=== PATIENT | female | born 1985 | race Caucasian/White ===

== ENCOUNTER 2017-08-27 19:28 | Inpatient (IN) | payer OTHER ==
[2017-08-27] MEDS ORDERED: Sodium Chloride 0.9% 1,000 ML IV ONE ×2 (20:36→21:31)
--- NOTE | 2017-08-27 20:36 | C.PDOC ---
History Of Present Illness Patient presents to the ER with a complaint of intermittent abdominal pain and right flank pain for the past week that has worsened today, associated with nausea. Patient reports she believes she had a UTI 2 weeks ago for which she took AZO. Patient notes the pain worsens with walking and eating but has been taking tylenol with some relief. Denies chest pain, SOB, or vomiting. Time Seen by Provider: 08/27/17 20:33 Chief Complaint (Nursing): Abdominal Pain History Per: Patient History/Exam Limitations: no limitations Onset/Duration Of Symptoms: Days, Intermittent Episodes Current Symptoms Are (Timing): Still Present Severity: Moderate Pain Scale Rating Of: 6 Location Of Pain/Discomfort: RUQ, Other (Right flank) Quality Of Discomfort: Unable To Describe Associated Symptoms: Nausea. denies: Vomiting Exacerbating Factors: None Alleviating Factors: None Recent travel outside of the [place]: No Additional History Per: Family Abnormal Vaginal Bleeding: No Past Medical History Reviewed: Historical Data, Nursing Documentation, Vital Signs Vital Signs: Last Vital Signs Temp 103.1 F H 08/27/17 21:31 Pulse 114 H 08/27/17 21:26 Resp 18 08/27/17 21:26 BP 161/110 H 08/27/17 21:26 Pulse Ox 100 08/27/17 21:26 Family History: States: No Known Family Hx - Social History Hx Tobacco Use: No Hx Alcohol Use: No Hx Substance Use: No - Immunization History Hx Tetanus Toxoid Vaccination: No Hx Influenza Vaccination: No Hx Pneumococcal Vaccination: No Review Of Systems Constitutional: Negative for: Fever, Chills Cardiovascular: Negative for: Chest Pain, Palpitations Respiratory: Negative for: Cough, Shortness of Breath Gastrointestinal: Positive for: Nausea, Abdominal Pain. Negative for: Vomiting Genitourinary: Positive for: Dysuria, Frequency Musculoskeletal: Positive for: Other (Right flank pain) Skin: Negative for: Rash Neurological: Negative for: Weakness Psych: Negative for: Anxiety Physical Exam - Physical Exam Appears: Non-toxic Skin: Warm, Dry Head: Normacephalic Oral Mucosa: Moist Neck: Supple Chest: Symmetrical, No Tenderness Cardiovascular: Rhythm Regular Respiratory: No Rales, No Rhonchi, No Wheezing Gastrointestinal/Abdominal: Soft, Tenderness (RUQ), No Guarding, No Rebound Back: CVA Tenderness (Right) Extremity: Normal ROM Extremity: Bilateral: Atraumatic Neurological/Psych: Oriented x3, Normal Speech Gait: Steady ED Course And Treatment - Laboratory Results Result Diagrams: 08/27/17 20:50 08/27/17 20:50 O2 Sat by Pulse Oximetry: 100 (Room air) Pulse Ox Interpretation: Normal Progress Note: Blood work and urinalysis ordered. Morphine, IV fluids, and zofran administered. Disposition Discussed With Dr.: Nicholas Norman Comment: accepted the pt on h is service and took over the care at 9:46 PM Doctor Will See Patient In The: ED Counseled Patient/Family Regarding: Studies Performed, Diagnosis - Disposition Disposition: HOSPITALIZED Disposition Time: 20:36 Condition: FAIR Forms: [facility] (Czech) - POA Present On Arrival: None - Clinical Impression Clinical Impression: Abdominal pain, Acute pyelonephritis - Scribe Statement The provider has reviewed the documentation as recorded by the Scribe Eric Stephens All medical record entries made by the Scribe were at my direction and personally dictated by me. I have reviewed the chart and agree that the record accurately reflects my personal performance of the history, physical exam, medical decision making, and the department course for this patient. I have also personally directed, reviewed, and agree with the discharge instructions and disposition. Decision To Admit - Pt Status Changed To: Hospital Disposition Of: Inpatient - Admit Certification Admit to Inpatient:: After my assessment, the patient will require hospitalization for at least two midnights. This is because of the severity of symptoms shown, intensity of services needed, and/or the medical risk in this patient being treated as an outpatient. - InPatient: Physician Admission Certification:: After my assessment, the patient will require hospitalization for at least two midnights. This is because of the severity of symptoms shown, intensity of services needed, and/or the medical risk in this patient being treated as an outpatient. - . Bed Request Type: Regular Admitting Physician: Nicholas Norman Patient Diagnosis: Abdominal pain, Acute pyelonephritis
[2017-08-27 20:53] LABS: BASO % 0.3 % (0.0-2.0); EOS % 0.2 % (0.0-4.0); HEMOGLOBIN 13.3 g/dL (11.0-16.0); LYMPH # 0.5 K/uL (1.0-4.3); LYMPH % 5.9 % (20.0-40.0); MEAN CELL VOLUME 82.6 fL (81.0-99.0); MEAN CORPUSCULAR HEMOGLOBIN 27.5 pg (27.0-31.0); MEAN CORPUSCULAR HGB CONC 33.3 g/dL (33.0-37.0); MEAN PLATELET VOLUME 9.3 fL (7.2-11.7); MONO # 0.6 K/uL (0.0-0.8); MONO % 6.1 % (0.0-10.0); NEUT # 7.9 K/uL (1.8-7.0); NEUT % 87.5 % (50.0-75.0); NRBC % 0.1 % (0.0-2.0); PLATELET COUNT 211 K/uL (130-400); RBC 4.86 Mil/uL (3.80-5.20); RED CELL DISTRIBUTION WIDTH 12.6 % (11.5-14.5)
[2017-08-27 20:56] LABS: HCG,QUALITATIVE URINE NEGATIVE (NEGATIVE)
[2017-08-27 20:59] LABS: SQUAMOUS EPITHIAL 1 /hpf (0-5); URINE BACTERIA RARE (<OCC); URINE BILIRUBIN NEGATIVE (NEGATIVE); URINE BLOOD 2+ (NEGATIVE); URINE CLARITY Hazy (Clear); URINE COLOR Yellow (YELLOW); URINE GLUCOSE (UA) NORMAL (Normal); URINE LEUKOCYTE ESTERASE 3+ Leu/uL (Negative); URINE PROTEIN 2+ mg/dL (NEGATIVE); URINE UROBILINOGEN NORMAL mg/dL (0.2-1.0)
[2017-08-27 21:05] LABS: VENOUS BLOOD GAS BASE EXCESS -1.1 mmol/L (0.0-2.0); VENOUS BLOOD GAS PCO2 45 mmHg (40-60); VENOUS BLOOD GAS PO2 14 mm/Hg (30-55); VENOUS BLOOD PH 7.35 (7.32-7.43)
[2017-08-27 21:05] LABS: ALB/GLOB RATIO 1.3 (1.0-2.1); ALBUMIN 4.2 g/dL (3.5-5.0); ALT/SGPT 23 U/L (9-52); AST/SGOT 27 U/L (14-36); BLOOD UREA NITROGEN 13 mg/dL (7-17); CALCIUM 9.1 mg/dl (8.6-10.4); GFR AFRICAN-AMERICAN > 60; GFR NON-AFRICAN AMERICAN > 60; LIPASE 36 U/L (23-300)
[2017-08-27 21:16] LABS: BANDS 6 % (0-2); LYMPHOCYTE 9 % (20-40); MONOCYTE 8 % (0-10); NEUTROPHIL 77 % (50-75); PLATELET ESTIMATE NORMAL (NORMAL); TOTAL CELLS COUNTED 100
[2017-08-27] MEDS ORDERED: Sodium Chloride 0.9% 1,000 ML ONE (21:35)
--- NOTE | 2017-08-27 22:00 | CP.PCM.HP ---
<Aleta Meraz - Last Filed: 08/27/17 23:41> History of Present Illness - History of Present Illness History of Present Illness: CC: back pain and dysuria HPI: 31F patient states that the right sided flank/back pain started on Friday 08/25 and she noted cloudy urine and increased frequency Patient states for the past two days she's been having pain without burning with urination and suprapubic pain. Patient admits to RLQ and Right mid quadrant pain associated with nausea. Pain is noted as stabbing with pressure worse with walking, worse with food. Patient states she took tylenol which helped. Patient admits to fever, chills, nausea, abdominal pain, dysuria. Patient states she wipes from front to back and urinates immediately after sexual intercourse. PMH:LMP 1 month, irregular periords Social History: no illicit drugs, never smoker Family history: mother has HTN, DM PMD: Dr. Smith Present on Admission - Present on Admission Any Indicators Present on Admission: No History of DVT/PE: No History of Uncontrolled Diabetes: No Urinary Catheter: No Decubitus Ulcer Present: No Review of Systems - Review of Systems All systems: reviewed and no additional remarkable complaints except - Constitutional Constitutional: Fever. absent: Headache, Lethargy, Malaise - Cardiovascular Cardiovascular: absent: Palpitations Past Patient History - Infectious Disease Hx of Infectious Diseases: None - Past Social History Smoking Status: Never Smoked - PSYCHIATRIC Hx Substance Use: No - SURGICAL HISTORY Hx Surgeries: Yes Hx Section: Yes (x3) - ANESTHESIA Hx Anesthesia: Yes Hx Anesthesia Reactions: No Meds Allergies/Adverse Reactions: Allergies Allergy/AdvReac Type Severity Reaction Status Date / Time No Known Allergies Allergy Verified 08/27/17 20:02 Physical Exam - Constitutional Appears: Non-toxic, No Acute Distress - Head Exam Head Exam: ATRAUMATIC, NORMAL INSPECTION, NORMOCEPHALIC - Eye Exam Eye Exam: EOMI, Normal appearance Pupil Exam: NORMAL ACCOMODATION, PERRL - ENT Exam ENT Exam: Mucous Membranes Moist, Normal Exam - Neck Exam Neck exam: Positive for: Normal Inspection. Negative for: Tenderness, Thyromegaly - Respiratory Exam Respiratory Exam: Clear to Auscultation Bilateral, NORMAL BREATHING PATTERN. absent: Accessory Muscle Use, Respiratory Distress - Cardiovascular Exam Cardiovascular Exam: Tachycardia, REGULAR RHYTHM, +S1, +S2 - GI/Abdominal Exam GI & Abdominal Exam: Normal Bowel Sounds, Soft, Tenderness (right lower quadrant , suprapubic) - Extremities Exam Extremities exam: Positive for: full ROM, normal inspection. Negative for: pedal edema - Back Exam Back exam: CVA tenderness (R), FULL ROM, NORMAL INSPECTION - Neurological Exam Neurological exam: Alert, Normal Gait - Psychiatric Exam Psychiatric exam: Normal Affect, Normal Mood - Skin Skin Exam: Warm Results - Vital Signs Recent Vital Signs: Last Vital Signs Temp 103.1 F H 08/27/17 21:31 Pulse 114 H 08/27/17 21:26 Resp 18 08/27/17 21:26 BP 161/110 H 08/27/17 21:26 Pulse Ox 100 08/27/17 21:48 - Labs Result Diagrams: 08/27/17 20:50 08/27/17 20:50 Labs: Laboratory Results - last 24 hr 08/27/17 08/27/17 08/27/17 20:50 20:50 20:50 WBC 9.0 RBC 4.86 Hgb 13.3 Hct 40.1 MCV 82.6 MCH 27.5 MCHC 33.3 RDW 12.6 Plt Count 211 MPV 9.3 Neut % (Auto) 87.5 H Lymph % (Auto) 5.9 L [place] % (Auto) 6.1 Eos % (Auto) 0.2 Baso % (Auto) 0.3 Neut # (Auto) 7.9 H Lymph # (Auto) 0.5 L [place] # (Auto) 0.6 Eos # (Auto) 0.0 Baso # (Auto) 0.0 Neutrophils % (Manual) 77 H Band Neutrophils % 6 H Lymphocytes % (Manual) 9 L Monocytes % (Manual) 8 Platelet Estimate Normal pO2 VBG pH VBG pCO2 VBG HCO3 VBG Total CO2 VBG O2 Sat (Calc) VBG Base Excess VBG Potassium Glucose Lactate FiO2 Sodium 141 Potassium 4.1 Chloride 102 Carbon Dioxide 26 Anion Gap 17 BUN 13 Creatinine 0.8 Est GFR ( Amer) > 60 Est GFR (Non-Af Amer) > 60 Random Glucose 93 Calcium 9.1 Total Bilirubin 0.9 AST 27 ALT 23 Alkaline Phosphatase 61 Total Protein 7.5 Albumin 4.2 Globulin 3.3 Albumin/Globulin Ratio 1.3 Lipase 36 Venous Blood Potassium Urine Color Yellow Urine Clarity Hazy Urine pH 7.0 Ur Specific Chase 1.016 Urine Protein 2+ H Urine Glucose (UA) Normal Urine Ketones Negative Urine Blood 2+ H Urine Nitrate Negative Urine Bilirubin Negative Urine Urobilinogen Normal Ur Leukocyte Esterase 3+ H Urine WBC (Auto) 510 H Urine RBC (Auto) 127 H Ur Squamous Epith Cells 1 Urine Bacteria Rare Urine HCG, Qual Negative 08/27/17 20:55 WBC RBC Hgb Hct MCV MCH MCHC RDW Plt Count MPV Neut % (Auto) Lymph % (Auto) [place] % (Auto) Eos % (Auto) Baso % (Auto) Neut # (Auto) Lymph # (Auto) [place] # (Auto) Eos # (Auto) Baso # (Auto) Neutrophils % (Manual) Band Neutrophils % Lymphocytes % (Manual) Monocytes % (Manual) Platelet Estimate pO2 14 L VBG pH 7.35 VBG pCO2 45 VBG HCO3 21.8 VBG Total CO2 26.2 VBG O2 Sat (Calc) 19.8 L VBG Base Excess -1.1 L VBG Potassium 3.1 L Glucose 80 Lactate 0.8 FiO2 21.0 Sodium 140.0 Potassium Chloride 109.0 H Carbon Dioxide Anion Gap BUN Creatinine Est GFR ( Amer) Est GFR (Non-Af Amer) Random Glucose Calcium Total Bilirubin AST ALT Alkaline Phosphatase Total Protein Albumin Globulin Albumin/Globulin Ratio Lipase Venous Blood Potassium 3.1 L Urine Color Urine Clarity Urine pH Ur Specific Chase Urine Protein Urine Glucose (UA) Urine Ketones Urine Blood Urine Nitrate Urine Bilirubin Urine Urobilinogen Ur Leukocyte Esterase Urine WBC (Auto) Urine RBC (Auto) Ur Squamous Epith Cells Urine Bacteria Urine HCG, Qual Assessment & Plan - Assessment and Plan (Free Text) Assessment: Pyelonephritis (right>Left) UTI UA positive f/u CT abdomen/pelvis: perinephric stranding noted f/u Urine culture f/u blood culture Monitor vitals tylenol 650mg PO Q6H PRN fever toradol 15mg IVP Q6H PRN pain, moderate toradol 30mg IVP Q6H PRN pain, severe LR @150cc/hr Rocephin 1 gm/D5W Q24H pyridium TID x 6 doses Prophylaxis SCDs Aleta Meraz DO PGY1 - Date & Time Date: 08/27/17 Time: 23:44 <Nicholas Norman P - Last Filed: 08/28/17 06:56> Results - Vital Signs Recent Vital Signs: Last Vital Signs Temp 99.1 F 08/28/17 06:00 Pulse 100 H 08/28/17 00:05 Resp 20 08/28/17 00:05 BP 126/82 08/28/17 00:05 Pulse Ox 98 08/28/17 00:05 - Labs Result Diagrams: 08/27/17 20:50 08/27/17 20:50 Labs: Laboratory Results - last 24 hr 08/27/17 08/27/17 08/27/17 20:50 20:50 20:50 WBC 9.0 RBC 4.86 Hgb 13.3 Hct 40.1 MCV 82.6 MCH 27.5 MCHC 33.3 RDW 12.6 Plt Count 211 MPV 9.3 Neut % (Auto) 87.5 H Lymph % (Auto) 5.9 L [place] % (Auto) 6.1 Eos % (Auto) 0.2 Baso % (Auto) 0.3 Neut # (Auto) 7.9 H Lymph # (Auto) 0.5 L [place] # (Auto) 0.6 Eos # (Auto) 0.0 Baso # (Auto) 0.0 Neutrophils % (Manual) 77 H Band Neutrophils % 6 H Lymphocytes % (Manual) 9 L Monocytes % (Manual) 8 Platelet Estimate Normal pO2 VBG pH VBG pCO2 VBG HCO3 VBG Total CO2 VBG O2 Sat (Calc) VBG Base Excess VBG Potassium Glucose Lactate FiO2 Sodium 141 Potassium 4.1 Chloride 102 Carbon Dioxide 26 Anion Gap 17 BUN 13 Creatinine 0.8 Est GFR ( Amer) > 60 Est GFR (Non-Af Amer) > 60 Random Glucose 93 Calcium 9.1 Total Bilirubin 0.9 AST 27 ALT 23 Alkaline Phosphatase 61 Total Protein 7.5 Albumin 4.2 Globulin 3.3 Albumin/Globulin Ratio 1.3 Lipase 36 Venous Blood Potassium Urine Color Yellow Urine Clarity Hazy Urine pH 7.0 Ur Specific [place] 1.016 Urine Protein 2+ H Urine Glucose (UA) Normal Urine Ketones Negative Urine Blood 2+ H Urine Nitrate Negative Urine Bilirubin Negative Urine Urobilinogen Normal Ur Leukocyte Esterase 3+ H Urine WBC (Auto) 510 H Urine RBC (Auto) 127 H Ur Squamous Epith Cells 1 Urine Bacteria Rare Urine HCG, Qual Negative 08/27/17 20:55 WBC RBC Hgb Hct MCV MCH MCHC RDW Plt Count MPV Neut % (Auto) Lymph % (Auto) [place] % (Auto) Eos % (Auto) Baso % (Auto) Neut # (Auto) Lymph # (Auto) [place] # (Auto) Eos # (Auto) Baso # (Auto) Neutrophils % (Manual) Band Neutrophils % Lymphocytes % (Manual) Monocytes % (Manual) Platelet Estimate pO2 14 L VBG pH 7.35 VBG pCO2 45 VBG HCO3 21.8 VBG Total CO2 26.2 VBG O2 Sat (Calc) 19.8 L VBG Base Excess -1.1 L VBG Potassium 3.1 L Glucose 80 Lactate 0.8 FiO2 21.0 Sodium 140.0 Potassium Chloride 109.0 H Carbon Dioxide Anion Gap BUN Creatinine Est GFR ( Amer) Est GFR (Non-Af Amer) Random Glucose Calcium Total Bilirubin AST ALT Alkaline Phosphatase Total Protein Albumin Globulin Albumin/Globulin Ratio Lipase Venous Blood Potassium 3.1 L Urine Color Urine Clarity Urine pH Ur Specific [place] Urine Protein Urine Glucose (UA) Urine Ketones Urine Blood Urine Nitrate Urine Bilirubin Urine Urobilinogen Ur Leukocyte Esterase Urine WBC (Auto) Urine RBC (Auto) Ur Squamous Epith Cells Urine Bacteria Urine HCG, Qual Attending/Attestation - Attestation I have personally seen and examined this patient.: Yes I have fully participated in the care of the patient.: Yes I have reviewed all pertinent clinical information: Yes Notes (Text): 08/28/17 06:54 Clinically and radiologically right pyelonephritis, started on rocephin 1g iv daily, pain control with toradol 15mg iv q6, awaiting urine and blood cultures, see orders for detail.
[2017-08-28] MEDS: Lactated Ringer's 1,000 ML IV SCH ×5 (00:45→20:24)
--- NOTE | 2017-08-28 09:17 | CT ---
PROCEDURE: CT Abdomen and Pelvis without intravenous contrast HISTORY: Right flank pain COMPARISON: None. TECHNIQUE: Multiple contiguous axial images were performed through the abdomen and pelvis without intravenous contrast. Subsequently, sagittal and coronal reformatted images were obtained. Radiation dose: Total exam DLP = 372 mGy-cm. This CT exam was performed using one or more of the following dose reduction techniques: Automated exposure control, adjustment of the mA and/or kV according to patient size, and/or use of iterative reconstruction technique. FINDINGS: LOWER THORAX: Small hiatal hernia. Mild atelectasis at the lung bases. LIVER: Unremarkable. No gross lesion or ductal dilatation. GALLBLADDER AND BILE DUCTS: Unremarkable. PANCREAS: Unremarkable. No gross lesion or ductal dilatation. SPLEEN: Unremarkable. ADRENALS: Unremarkable. No mass. KIDNEYS AND URETERS: Bilateral perinephric stranding and edema; right greater than left. No gross renal calculi identified. VASCULATURE: Unremarkable. No aortic aneurysm. BOWEL: Stomach is partially distended. Proximal small bowel is mildly dilated. Scattered air-fluid levels. Streak artifact limits evaluation of the mid small bowel. Distal small bowel is decompressed. Ileocecal region is unremarkable. Colon is incompletely distended which limits evaluation. APPENDIX: Unremarkable. Normal appendix. PERITONEUM: Unremarkable. No free fluid. No free air. LYMPH NODES: Shotty adenopathy. BLADDER: Under distended urinary bladder. Mild prominence of the urinary bladder wall. REPRODUCTIVE: Prominence of the left adnexum with a 3.8 centimeter left adnexal cyst. BONES: No acute fracture. OTHER FINDINGS: None. IMPRESSION: Bilateral perinephric stranding and edema; right greater than left. No gross calculi or stones. Limited evaluation of the renal parenchyma secondary to lack of intravenous contrast. Pyelonephritis cannot be excluded. Clinical correlation. Mild urinary bladder wall thickening versus underdistention. Clinical correlation. 3.8 centimeter left adnexal cyst. Correlation with pelvic ultrasound may be helpful. Additional findings as above. These findings were preliminarily reported at 10:33 p.m. on 08/27/[address] Tabatha Sahni from [facility] [employer].
[2017-08-28] MEDS ORDERED: cefTRIAXone IV 1 gm in Dextros 50 ML IVPB SCH (10:00)
--- NOTE | 2017-08-28 13:42 | CP.PCM.PN ---
<John David - Last Filed: 08/28/17 13:44> Subjective - Date & Time of Evaluation Date of Evaluation: 08/28/17 Time of Evaluation: 13:39 - Subjective Subjective: Patient seen and examined at bedside. Doing well. Denies any dysuria. Still complaining of mild flank pain but no suprapubic tenderness. Tolerating diet. Ambulating without difficulty. Objective - Vital Signs/Intake and Output Vital Signs (last 24 hours): Temp Pulse Resp BP Pulse Ox 99.2 F 113 H 20 143/90 98 08/28/17 12:45 08/28/17 07:57 08/28/17 07:57 08/28/17 07:57 08/28/17 07:57 Intake and Output: 08/28/17 08/28/17 06:59 18:59 Intake Total 390 Balance 390 - Medications Medications: Current Medications Acetaminophen (Tylenol 325mg Tab) 650 mg PO Q6 PRN PRN Reason: Fever >100.4 F Last Admin: 08/28/17 12:41 Dose: 650 mg Ceftriaxone Sodium (Rocephin Iv 1 Gm Duplex) 50 mls @ 100 mls/hr IVPB DAILY [facility] PRN Reason: Protocol Last Admin: 08/28/17 10:01 Dose: 100 mls/hr Lactated Ringer's (Lactated Ringer's) 1,000 mls @ 150 mls/hr IV .Q6H40M [facility] Last Admin: 08/28/17 07:25 Dose: 150 mls/hr Ketorolac Tromethamine (Toradol) 15 mg IVP Q6 PRN PRN Reason: Pain, moderate (4-7) Last Admin: 08/28/17 07:30 Dose: 15 mg Pneumococcal Polyvalent Vaccine (Pneumovax 23 Vaccine) 0.5 ml IM .ONCE ONE Stop: 08/29/17 10:01 - Labs Labs: 08/27/17 20:50 08/27/17 20:50 - Constitutional Appears: Well - Head Exam Head Exam: ATRAUMATIC, NORMAL INSPECTION, NORMOCEPHALIC - Eye Exam Eye Exam: EOMI, Normal appearance, PERRL Pupil Exam: NORMAL ACCOMODATION, PERRL - ENT Exam ENT Exam: Mucous Membranes Moist, Normal Exam - Neck Exam Neck Exam: Full ROM, Normal Inspection. absent: Lymphadenopathy - Respiratory Exam Respiratory Exam: Clear to Ausculation Bilateral, NORMAL BREATHING PATTERN - Cardiovascular Exam Cardiovascular Exam: REGULAR RHYTHM, +S1, +S2. absent: Murmur - GI/Abdominal Exam GI & Abdominal Exam: Soft, Normal Bowel Sounds. absent: Distended, Tenderness - Extremities Exam Extremities Exam: Full ROM, Normal Capillary Refill, Normal Inspection. absent : Joint Swelling, Pedal Edema - Back Exam Back Exam: NORMAL INSPECTION - Neurological Exam Neurological Exam: Alert, Awake, CN II-XII Intact, Normal Gait, Oriented x3 - Psychiatric Exam Psychiatric exam: Normal Affect, Normal Mood - Skin Skin Exam: Dry, Intact, Normal Color, Warm Assessment and Plan (1) Acute pyelonephritis Assessment & Plan: Patient complains of R. Flank pain but no other urinary complaints. CT abdomen pelvis w/o contrast shows b/l perinephric stranding R>L w/no stones. UA 3+ LE. UC pending. Patient was previously on Rocephin but continue to spike High fevers. Will d/c rocephin and start Imipenim for ESBL coverage if that returner to be the case. Will tailor Abx once UC is final. At this time will continue with pain control and hydration. Status: Acute <Markie Hightower H - Last Filed: 08/28/17 14:58> Objective - Vital Signs/Intake and Output Vital Signs (last 24 hours): Temp Pulse Resp BP Pulse Ox 103 F H 113 H 20 143/90 98 08/28/17 13:50 08/28/17 07:57 08/28/17 07:57 08/28/17 07:57 08/28/17 07:57 Intake and Output: 08/28/17 08/28/17 06:59 18:59 Intake Total 390 Balance 390 - Medications Medications: Current Medications Acetaminophen (Tylenol 325mg Tab) 650 mg PO Q6 PRN PRN Reason: Fever >100.4 F Last Admin: 08/28/17 12:41 Dose: 650 mg Lactated Ringer's (Lactated Ringer's) 1,000 mls @ 150 mls/hr IV .Q6H40M [facility] Last Admin: 08/28/17 14:21 Dose: Not Given Imipenem/Cilastatin Sodium 500 (mg/ Sodium Chloride) 100 mls @ 100 mls/hr IVPB Q6H [facility] PRN Reason: Protocol Last Admin: 08/28/17 14:34 Dose: 100 mls/hr Ibuprofen (Motrin Tab) 400 mg PO Q6H PRN PRN Reason: Fever >100.4 F Last Admin: 08/28/17 14:19 Dose: 400 mg Ketorolac Tromethamine (Toradol) 15 mg IVP Q6 PRN PRN Reason: Pain, moderate (4-7) Last Admin: 08/28/17 07:30 Dose: 15 mg Ondansetron HCl (Zofran Inj) 4 mg IVP Q6H PRN PRN Reason: Nausea/Vomiting Last Admin: 08/28/17 14:20 Dose: 4 mg Pneumococcal Polyvalent Vaccine (Pneumovax 23 Vaccine) 0.5 ml IM .ONCE ONE Stop: 08/29/17 10:01 - Labs Labs: 08/27/17 20:50 08/27/17 20:50 Attending/Attestation - Attestation I have personally seen and examined this patient.: Yes I have fully participated in the care of the patient.: Yes I have reviewed all pertinent clinical information, including history, physical exam and plan: Yes Notes (Text): 08/28/17 14:57 Medical attending: Patient was seen and examined by me. Agree with the above note by the resident. The patient reported she had less pain than yesterday - however she reported still having fevers. There was a temp of 102 and later on I was informed a temperature of 103. We are still pending the cultures at this moment - but considering the temperatures will change lead to IV primaxin. Markie Hightower
[2017-08-29] MEDS: Lactated Ringer's 1,000 ML IV SCH ×5 (01:10→23:45)
[2017-08-29] MEDS ORDERED: Pneumococcal 23-Valent Vaccine IM ONE (10:00)
--- NOTE | 2017-08-29 13:19 | CP.PCM.PN ---
<John David - Last Filed: 08/29/17 13:15> Subjective - Date & Time of Evaluation Date of Evaluation: 08/29/17 Time of Evaluation: 13:15 - Subjective Subjective: Patient seen and examined at bedside. Doing well. Pain is improving but patient still having fevers. Tolerating diet. Ambulating without difficulty. No chills. No nausea. Patient states she had one episode of diarrhea that appeared to have blood in it. Objective - Vital Signs/Intake and Output Vital Signs (last 24 hours): Temp Pulse Resp BP Pulse Ox 98.7 F 91 H 20 121/80 100 08/29/17 07:47 08/29/17 07:47 08/29/17 07:47 08/29/17 07:47 08/29/17 07:47 Intake and Output: 08/29/17 08/29/17 06:59 18:59 Intake Total 3070 Balance 3070 - Medications Medications: Current Medications Acetaminophen (Tylenol 325mg Tab) 650 mg PO Q6 PRN PRN Reason: Fever >100.4 F Last Admin: 08/28/17 23:44 Dose: 650 mg Lactated Ringer's (Lactated Ringer's) 1,000 mls @ 150 mls/hr IV .Q6H40M CHARLIE Last Admin: 08/29/17 09:45 Dose: 150 mls/hr Imipenem/Cilastatin Sodium 500 (mg/ Sodium Chloride) 100 mls @ 100 mls/hr IVPB Q6H CHARLIE PRN Reason: Protocol Last Admin: 08/29/17 08:15 Dose: 100 mls/hr Ibuprofen (Motrin Tab) 400 mg PO Q6H PRN PRN Reason: Fever >100.4 F Last Admin: 08/28/17 14:19 Dose: 400 mg Ketorolac Tromethamine (Toradol) 15 mg IVP Q6 PRN PRN Reason: Pain, moderate (4-7) Last Admin: 08/29/17 05:53 Dose: 15 mg Ondansetron HCl (Zofran Inj) 4 mg IVP Q6H PRN PRN Reason: Nausea/Vomiting Last Admin: 08/28/17 14:20 Dose: 4 mg - Labs Labs: 08/27/17 20:50 08/27/17 20:50 - Constitutional Appears: Well - Head Exam Head Exam: ATRAUMATIC, NORMAL INSPECTION, NORMOCEPHALIC - Eye Exam Eye Exam: EOMI, Normal appearance, PERRL Pupil Exam: NORMAL ACCOMODATION, PERRL - ENT Exam ENT Exam: Mucous Membranes Moist, Normal Exam - Neck Exam Neck Exam: Full ROM, Normal Inspection. absent: Lymphadenopathy - Respiratory Exam Respiratory Exam: Clear to Ausculation Bilateral, NORMAL BREATHING PATTERN - Cardiovascular Exam Cardiovascular Exam: REGULAR RHYTHM, +S1, +S2. absent: Murmur - GI/Abdominal Exam GI & Abdominal Exam: Soft, Tenderness (mild tnederness to palaption of the right flank), Normal Bowel Sounds - Rectal Exam Rectal Exam: NORMAL INSPECTION - Exam Exam: Circumcision, NORMAL INSPECTION External exam: NORMAL EXTERNAL EXAM Speculum exam: NORMAL SPECULUM EXAM Bimanual exam: NORMAL BIMANUAL EXAM - Extremities Exam Extremities Exam: Full ROM, Normal Capillary Refill, Normal Inspection. absent : Joint Swelling, Pedal Edema - Back Exam Back Exam: CVA tenderness (R) (improving), NORMAL INSPECTION - Neurological Exam Neurological Exam: Alert, Awake, CN II-XII Intact, Normal Gait, Oriented x3 - Psychiatric Exam Psychiatric exam: Normal Affect, Normal Mood - Skin Skin Exam: Dry, Intact, Normal Color, Warm Assessment and Plan (1) Acute pyelonephritis Assessment & Plan: Patient complains of R. Flank pain but no other urinary complaints. CT abdomen pelvis w/o contrast shows b/l perinephric stranding R>L w/no stones. UA 3+ LE. UC pending. Patient on Imipenim for ESBL coverage if that returns processor to be the case. Will tailor Abx once UC is final, @ this time shows gram negative rods. Blood cultures negative to date. Pain is improving however the patient continues to have fever . At this time will continue with pain control and hydration. She did have one episode of diarrhea that appeared to have blood in it. Will check labs and stool studies. Status: Acute <Markie Hightower H - Last Filed: 08/29/17 14:31> Objective - Vital Signs/Intake and Output Vital Signs (last 24 hours): Temp Pulse Resp BP Pulse Ox 101.6 F H 91 H 20 121/80 100 08/29/17 13:20 08/29/17 07:47 08/29/17 07:47 08/29/17 07:47 08/29/17 07:47 Intake and Output: 08/29/17 08/29/17 06:59 18:59 Intake Total 3070 Balance 3070 - Medications Medications: Current Medications Acetaminophen (Tylenol 325mg Tab) 650 mg PO Q6 PRN PRN Reason: Fever >100.4 F Last Admin: 08/29/17 13:20 Dose: 650 mg Lactated Ringer's (Lactated Ringer's) 1,000 mls @ 150 mls/hr IV .Q6H40M CHARLIE Last Admin: 08/29/17 09:45 Dose: 150 mls/hr Imipenem/Cilastatin Sodium 500 (mg/ Sodium Chloride) 100 mls @ 100 mls/hr IVPB Q6H CHARLIE PRN Reason: Protocol Last Admin: 08/29/17 14:27 Dose: 100 mls/hr Ibuprofen (Motrin Tab) 400 mg PO Q6H PRN PRN Reason: Fever >100.4 F Last Admin: 08/28/17 14:19 Dose: 400 mg Ketorolac Tromethamine (Toradol) 15 mg IVP Q6 PRN PRN Reason: Pain, moderate (4-7) Last Admin: 08/29/17 14:25 Dose: 15 mg Ondansetron HCl (Zofran Inj) 4 mg IVP Q6H PRN PRN Reason: Nausea/Vomiting Last Admin: 08/28/17 14:20 Dose: 4 mg - Labs Labs: 08/29/17 10:46 08/29/17 13:57 Attending/Attestation - Attestation I have personally seen and examined this patient.: Yes I have fully participated in the care of the patient.: Yes I have reviewed all pertinent clinical information, including history, physical exam and plan: Yes Notes (Text): 08/29/17 14:28 Medical attending: Patient was seen and examined by me, agrees the above note by the medical scientist. The patient was not in any acute distress when I saw her she is still having some fevers noted every now and then. She says that the pain particularly on her right flank is substantially less than before. She is currently on IV Primaxin at this moment. The urine culture is a preliminary gram-negative shireen at this moment. We'll await the finalization of this and if need to make any further adjustments to the antibiotics Thank you very much, Markie Hightower
[2017-08-29 14:10] LABS: BASO % 0.1 % (0.0-2.0); EOS # 0.2 K/uL (0.0-0.7); EOS % 2.1 % (0.0-4.0); HEMOGLOBIN 11.6 g/dL (11.0-16.0); LYMPH # 0.8 K/uL (1.0-4.3); MEAN CELL VOLUME 82.6 fL (81.0-99.0); MEAN CORPUSCULAR HEMOGLOBIN 27.5 pg (27.0-31.0); MEAN CORPUSCULAR HGB CONC 33.3 g/dL (33.0-37.0); MEAN PLATELET VOLUME 9.6 fL (7.2-11.7); MONO # 0.8 K/uL (0.0-0.8); MONO % 10.6 % (0.0-10.0); NEUT # 5.9 K/uL (1.8-7.0); NEUT % 76.2 % (50.0-75.0); RBC 4.21 Mil/uL (3.80-5.20); RED CELL DISTRIBUTION WIDTH 12.5 % (11.5-14.5); WHITE BLOOD COUNT 7.7 K/uL (4.8-10.8)
[2017-08-29 14:26] LABS: ALB/GLOB RATIO 1.1 (1.0-2.1); ALBUMIN 3.3 g/dL (3.5-5.0); ALT/SGPT 32 U/L (9-52); AST/SGOT 23 U/L (14-36); BLOOD UREA NITROGEN 6 mg/dL (7-17); CALCIUM 8.7 mg/dl (8.6-10.4); GFR AFRICAN-AMERICAN > 60; GFR NON-AFRICAN AMERICAN > 60
[2017-08-30] MEDS ORDERED: DiphenhydrAMINE 50 mg/ml Inj IVP STA (00:08)
[2017-08-30] MEDS: Lactated Ringer's 1,000 ML IV SCH (05:55)
--- NOTE | 2017-08-30 07:49 | CP.PCM.PN ---
<Zane Ventura - Last Filed: 08/30/17 08:13> Subjective - Date & Time of Evaluation Date of Evaluation: 08/30/17 Time of Evaluation: 07:47 - Subjective Subjective: PGY-[address] Hightower's service: Pt seen and examined at bedside. Nursing reports no acute events overnight. Objective - Vital Signs/Intake and Output Vital Signs (last 24 hours): Temp Pulse Resp BP Pulse Ox 99.3 F 89 20 136/88 98 08/30/17 01:00 08/30/17 00:00 08/30/17 00:00 08/30/17 01:00 08/30/17 00:00 Intake and Output: 08/30/17 08/30/17 06:59 18:59 Intake Total 1600 1700 Output Total 600 Balance 1000 1700 - Medications Medications: Current Medications Acetaminophen (Tylenol 325mg Tab) 650 mg PO Q6 PRN PRN Reason: Fever >100.4 F Last Admin: 08/30/17 00:16 Dose: 650 mg Lactated Ringer's (Lactated Ringer's) 1,000 mls @ 150 mls/hr IV .Q6H40M CHARLIE Last Admin: 08/30/17 05:55 Dose: 150 mls/hr Imipenem/Cilastatin Sodium 500 (mg/ Sodium Chloride) 100 mls @ 100 mls/hr IVPB Q6H CHARLIE PRN Reason: Protocol Last Admin: 08/30/17 01:29 Dose: 100 mls/hr Ibuprofen (Motrin Tab) 400 mg PO Q6H PRN PRN Reason: Fever >100.4 F Last Admin: 08/28/17 14:19 Dose: 400 mg Ondansetron HCl (Zofran Inj) 4 mg IVP Q6H PRN PRN Reason: Nausea/Vomiting Last Admin: 08/28/17 14:20 Dose: 4 mg - Labs Labs: 08/29/17 10:46 08/29/17 13:57 - Additional Findings Additional findings: - Constitutional Appears: Well - Head Exam Head Exam: ATRAUMATIC, NORMAL INSPECTION, NORMOCEPHALIC - Eye Exam Eye Exam: EOMI, Normal appearance, PERRL Pupil Exam: NORMAL ACCOMODATION, PERRL - ENT Exam ENT Exam: Mucous Membranes Moist, Normal Exam - Neck Exam Neck Exam: Full ROM, Normal Inspection. absent: Lymphadenopathy - Respiratory Exam Respiratory Exam: Clear to Ausculation Bilateral, NORMAL BREATHING PATTERN - Cardiovascular Exam Cardiovascular Exam: REGULAR RHYTHM, +S1, +S2. absent: Murmur - GI/Abdominal Exam GI & Abdominal Exam: Soft, Tenderness (mild tnederness to palaption of the right flank), Normal Bowel Sounds - Rectal Exam Rectal Exam: NORMAL INSPECTION - Extremities Exam Extremities Exam: Full ROM, Normal Capillary Refill, Normal Inspection. absent : Joint Swelling, Pedal Edema - Back Exam Back Exam: CVA tenderness (R) (improving), NORMAL INSPECTION - Neurological Exam Neurological Exam: Alert, Awake, CN II-XII Intact, Normal Gait, Oriented x3 - Psychiatric Exam Psychiatric exam: Normal Affect, Normal Mood - Skin Skin Exam: Dry, Intact, Normal Color, Warm Assessment and Plan - Assessment and Plan (Free Text) Plan: Acute pyelonephritis Admit to med/surg Febrile overnight; WBC WNL - Minor left shift CT abdomen pelvis w/o contrast (08/28/17) shows b/l perinephric stranding R>L w/ no stones UA 3+ LE UC (08/28/17): E Coli Imipenim for ESBL coverage Blood cultures negative to date x 2 ESBL Positive Urine culture Imipenem for ESBL coverage GI Bleed Positive Fecal Occult Monitor H/H Hypophosphotemia Phos 2.3 Will monitor and replete if needed Abnormal UA UA (08/27/17): 3+ LE, 510 WBC, 127 RBC, 2+ blood Prophylaxis <KatjaPeter H - Last Filed: 08/30/17 09:56> Objective - Vital Signs/Intake and Output Vital Signs (last 24 hours): Temp Pulse Resp BP Pulse Ox 98.2 F 74 20 138/95 H 98 08/30/17 07:00 08/30/17 07:00 08/30/17 07:00 08/30/17 07:00 08/30/17 07:00 Intake and Output: 08/30/17 08/30/17 06:59 18:59 Intake Total 1600 1700 Output Total 600 Balance 1000 1700 - Medications Medications: Current Medications Acetaminophen (Tylenol 325mg Tab) 650 mg PO Q6 PRN PRN Reason: Fever >100.4 F Last Admin: 08/30/17 00:16 Dose: 650 mg Imipenem/Cilastatin Sodium 500 (mg/ Sodium Chloride) 100 mls @ 100 mls/hr IVPB Q6H CHARLIE PRN Reason: Protocol Last Admin: 08/30/17 08:03 Dose: 100 mls/hr Ibuprofen (Motrin Tab) 400 mg PO Q6H PRN PRN Reason: Fever >100.4 F Last Admin: 08/28/17 14:19 Dose: 400 mg Ondansetron HCl (Zofran Inj) 4 mg IVP Q6H PRN PRN Reason: Nausea/Vomiting Last Admin: 08/28/17 14:20 Dose: 4 mg - Labs Labs: 08/29/17 10:46 08/29/17 13:57 Attending/Attestation - Attestation I have personally seen and examined this patient.: Yes I have fully participated in the care of the patient.: Yes I have reviewed all pertinent clinical information, including history, physical exam and plan: Yes Notes (Text): 08/30/17 09:50 Medical attending: Patient was seen and examined by me. Agree with the above note by the resident The patient needs contact isolation. She has ESBL E coli. It is senstive to primaxin - and it does not have any sentivity to oral abx, she does feel better. However because of the abcterial resistance we will try to give her 7 days total. Tommorow will recheck the blood and urine cultures. Currently the WBC is stable. She reports the flank and abdominal pain is very minimal. thank you Markie Hightower
--- NOTE | 2017-08-31 07:42 | CP.PCM.PN ---
<Zane Ventura - Last Filed: 08/31/17 10:22> Subjective - Date & Time of Evaluation Date of Evaluation: 08/31/17 Time of Evaluation: 07:37 - Subjective Subjective: PGY-[address] Hightower's service: Pt seen and examined at bedside. Nursing reports pt afebrile overnight. Patient denies any pain in her flank this AM. She denies subjective fever, chills, dysuria, abd pain, N/V. Patient aware of need for full course of IV antibiotics due to resistance to PO meds. Objective - Vital Signs/Intake and Output Vital Signs (last 24 hours): Temp Pulse Resp BP Pulse Ox 98.1 F 84 18 150/99 H 99 08/30/17 23:58 08/30/17 23:58 08/30/17 23:58 08/30/17 23:58 08/30/17 23:58 Intake and Output: 08/31/17 08/31/17 06:59 18:59 Intake Total 940 Balance 940 - Medications Medications: Current Medications Acetaminophen (Tylenol 325mg Tab) 650 mg PO Q6 PRN PRN Reason: Fever >100.4 F Last Admin: 08/30/17 14:18 Dose: 650 mg Imipenem/Cilastatin Sodium 500 (mg/ Sodium Chloride) 100 mls @ 100 mls/hr IVPB Q6H CHARLIE PRN Reason: Protocol Last Admin: 08/31/17 01:55 Dose: 100 mls/hr Ibuprofen (Motrin Tab) 400 mg PO Q6H PRN PRN Reason: Fever >100.4 F Last Admin: 08/30/17 17:35 Dose: 400 mg Ondansetron HCl (Zofran Inj) 4 mg IVP Q6H PRN PRN Reason: Nausea/Vomiting Last Admin: 08/28/17 14:20 Dose: 4 mg - Labs Labs: 08/29/17 10:46 08/29/17 13:57 - Additional Findings Additional findings: - Constitutional Appears: Well - Head Exam Head Exam: ATRAUMATIC, NORMAL INSPECTION, NORMOCEPHALIC - Eye Exam Eye Exam: EOMI, Normal appearance, PERRL Pupil Exam: NORMAL ACCOMODATION, PERRL - ENT Exam ENT Exam: Mucous Membranes Moist, Normal Exam - Neck Exam Neck Exam: Full ROM, Normal Inspection. absent: Lymphadenopathy - Respiratory Exam Respiratory Exam: Clear to Ausculation Bilateral, NORMAL BREATHING PATTERN - Cardiovascular Exam Cardiovascular Exam: REGULAR RHYTHM, +S1, +S2. absent: Murmur - GI/Abdominal Exam GI & Abdominal Exam: Soft, Normal Bowel Sounds - Rectal Exam Rectal Exam: NORMAL INSPECTION - Extremities Exam Extremities Exam: Full ROM, Normal Capillary Refill, Normal Inspection. absent : Joint Swelling, Pedal Edema - Back Exam Back Exam: Abdias sign negative bilaterally, NORMAL INSPECTION - Neurological Exam Neurological Exam: Alert, Awake, CN II-XII Intact, Normal Gait, Oriented x3 - Psychiatric Exam Psychiatric exam: Normal Affect, Normal Mood - Skin Skin Exam: Dry, Intact, Normal Color, Warm Assessment and Plan - Assessment and Plan (Free Text) Plan: Acute pyelonephritis Admit to med/surg Afebrile overnight; WBC CT abdomen pelvis w/o contrast (08/28/17) shows b/l perinephric stranding R>L w/ no stones UA 3+ LE Urine Culture (08/28/17): ESBL Imipenim 500mg Q6H IV for ESBL coverage Tylenol 650mg PO Q6H PRN fever Zofran 4mg IV Q6H PRN Blood cultures negative x 3 days f/u repeat urine/blood cultures ESBL Positive Urine culture Imipenem for ESBL coverage Hematuria UA (08/27/17): 3+ LE, 510 WBC, 127 RBC, 2+ blood Etiology of hematuria: pyelo Lower GI bleed Positive Fecal Occult Stable H/H Monitor Elevated AST AST 40 (08/31) Monitor Hypophosphotemia Resolved Prophylaxis SCDs GI not indicated VTE HOLD due to positive fecal occult Disposition: F/u repeat blood, urine cultures. Needs total of one week IV ABX. Zane Ventura PGY [address] Hightower <Markie Hightower H - Last Filed: 08/31/17 12:11> Objective - Vital Signs/Intake and Output Vital Signs (last 24 hours): Temp Pulse Resp BP Pulse Ox 98.1 F 79 20 131/89 100 08/31/17 08:00 08/31/17 08:00 08/31/17 08:00 08/31/17 08:00 08/31/17 08:00 Intake and Output: 08/31/17 08/31/17 06:59 18:59 Intake Total 940 Balance 940 - Medications Medications: Current Medications Acetaminophen (Tylenol 325mg Tab) 650 mg PO Q6 PRN PRN Reason: Fever >100.4 F Last Admin: 08/30/17 14:18 Dose: 650 mg Imipenem/Cilastatin Sodium 500 (mg/ Sodium Chloride) 100 mls @ 100 mls/hr IVPB Q6H CHARLIE PRN Reason: Protocol Last Admin: 08/31/17 08:08 Dose: 100 mls/hr Ondansetron HCl (Zofran Inj) 4 mg IVP Q6H PRN PRN Reason: Nausea/Vomiting Last Admin: 08/28/17 14:20 Dose: 4 mg - Labs Labs: 08/31/17 08:30 08/31/17 08:30 Attending/Attestation - Attestation Notes (Text): 08/31/17 12:09 Medical attending: Patient was seen and examined by me. Patient reported resloution of pain in the right flank as well as pain in the right upper quadrant. The patient as previously mentioned has + ESBL E coli and so is in isolation is needed. She remains on the IV primaxin. Pending the repeat cultures Markie Hightower
[2017-08-31 08:50] LABS: BASO % 0.2 % (0.0-2.0); EOS # 0.2 K/uL (0.0-0.7); EOS % 4.8 % (0.0-4.0); HEMOGLOBIN 11.9 g/dL (11.0-16.0); LYMPH # 1.1 K/uL (1.0-4.3); LYMPH % 23.1 % (20.0-40.0); MEAN CELL VOLUME 81.9 fL (81.0-99.0); MEAN CORPUSCULAR HEMOGLOBIN 27.9 pg (27.0-31.0); MEAN CORPUSCULAR HGB CONC 34.1 g/dL (33.0-37.0); MEAN PLATELET VOLUME 9.1 fL (7.2-11.7); MONO # 0.5 K/uL (0.0-0.8); NEUT # 2.8 K/uL (1.8-7.0); NEUT % 60.9 % (50.0-75.0); NRBC % 0.1 % (0.0-2.0); RBC 4.26 Mil/uL (3.80-5.20); RED CELL DISTRIBUTION WIDTH 12.6 % (11.5-14.5); WHITE BLOOD COUNT 4.6 K/uL (4.8-10.8)
[2017-08-31 09:04] LABS: ALB/GLOB RATIO 1.1 (1.0-2.1); ALBUMIN 3.5 g/dL (3.5-5.0); ALT/SGPT 42 U/L (9-52); AST/SGOT 40 U/L (14-36); BLOOD UREA NITROGEN 8 mg/dL (7-17); CALCIUM 8.6 mg/dl (8.6-10.4); GFR AFRICAN-AMERICAN > 60; GFR NON-AFRICAN AMERICAN > 60
[2017-09-01 07:24] LABS: BASO % 0.4 % (0.0-2.0); EOS # 0.2 K/uL (0.0-0.7); EOS % 4.2 % (0.0-4.0); HEMOGLOBIN 12.7 g/dL (11.0-16.0); LYMPH # 1.7 K/uL (1.0-4.3); LYMPH % 31.8 % (20.0-40.0); MEAN CELL VOLUME 81.7 fL (81.0-99.0); MEAN CORPUSCULAR HEMOGLOBIN 27.5 pg (27.0-31.0); MEAN CORPUSCULAR HGB CONC 33.7 g/dL (33.0-37.0); MEAN PLATELET VOLUME 8.9 fL (7.2-11.7); MONO # 0.6 K/uL (0.0-0.8); MONO % 11.3 % (0.0-10.0); NEUT # 2.9 K/uL (1.8-7.0); NEUT % 52.3 % (50.0-75.0); RBC 4.62 Mil/uL (3.80-5.20); RED CELL DISTRIBUTION WIDTH 12.5 % (11.5-14.5); WHITE BLOOD COUNT 5.5 K/uL (4.8-10.8)
[2017-09-01 07:56] LABS: ALB/GLOB RATIO 1.2 (1.0-2.1); ALBUMIN 3.8 g/dL (3.5-5.0); ALT/SGPT 84 U/L (9-52); AST/SGOT 76 U/L (14-36); BLOOD UREA NITROGEN 11 mg/dL (7-17); CALCIUM 9.1 mg/dl (8.6-10.4); GFR AFRICAN-AMERICAN > 60; GFR NON-AFRICAN AMERICAN > 60
[2017-09-01 08:10] VITALS: RESP 20
--- NOTE | 2017-09-01 09:56 | CP.PCM.PN ---
Subjective - Date & Time of Evaluation Date of Evaluation: 09/01/17 Time of Evaluation: 09:53 - Subjective Subjective: PGY-[address] Gaitan. No acute events noted overnight. Patient stated she felt well - much improved since this past friday. She said she's able to urinate without symptoms, and that she has no pubic or flank pain. She denies fevers. She slept well and is eating well. Objective - Vital Signs/Intake and Output Vital Signs (last 24 hours): Temp Pulse Resp BP Pulse Ox 98 F 73 20 131/89 99 09/01/17 08:06 09/01/17 08:06 09/01/17 08:06 09/01/17 08:06 09/01/17 08:06 Intake and Output: 09/01/17 09/01/17 06:59 18:59 Intake Total 1300 Output Total 2 Balance 1298 - Medications Medications: Current Medications Acetaminophen (Tylenol 325mg Tab) 650 mg PO Q6 PRN PRN Reason: Fever >100.4 F Last Admin: 08/30/17 14:18 Dose: 650 mg Imipenem/Cilastatin Sodium 500 (mg/ Sodium Chloride) 100 mls @ 100 mls/hr IVPB Q6H CHARLIE PRN Reason: Protocol Last Admin: 09/01/17 07:45 Dose: 100 mls/hr Ondansetron HCl (Zofran Inj) 4 mg IVP Q6H PRN PRN Reason: Nausea/Vomiting Last Admin: 08/28/17 14:20 Dose: 4 mg - Labs Labs: 09/01/17 07:05 09/01/17 07:05 - Additional Findings Additional findings: - Constitutional Appears: Well - Head Exam Head Exam: ATRAUMATIC, NORMAL INSPECTION, NORMOCEPHALIC - Eye Exam Eye Exam: EOMI, Normal appearance, PERRL Pupil Exam: NORMAL ACCOMODATION, PERRL - ENT Exam ENT Exam: Mucous Membranes Moist, Normal Exam - Neck Exam Neck Exam: Full ROM, Normal Inspection. absent: Lymphadenopathy - Respiratory Exam Respiratory Exam: Clear to Ausculation Bilateral, NORMAL BREATHING PATTERN - Cardiovascular Exam Cardiovascular Exam: REGULAR RHYTHM, +S1, +S2. absent: Murmur - GI/Abdominal Exam GI & Abdominal Exam: Soft, Normal Bowel Sounds - Rectal Exam Rectal Exam: NORMAL INSPECTION - Extremities Exam Extremities Exam: Full ROM, Normal Capillary Refill, Normal Inspection. absent : Joint Swelling, Pedal Edema - Back Exam Back Exam: NORMAL INSPECTION, No CVA tenderness elicited on palpation - Neurological Exam Neurological Exam: Alert, Awake, CN II-XII Intact, Normal Gait, Oriented x3 - Psychiatric Exam Psychiatric exam: Normal Affect, Normal Mood - Skin Skin Exam: Dry, Intact, Normal Color, Warm Assessment and Plan - Assessment and Plan (Free Text) Assessment: Acute pyelonephritis ID consult, Dr Abraham Admit to med/surg Afebrile overnight; WBC normal CT abdomen pelvis w/o contrast (08/28/17) shows b/l perinephric stranding R>L w/ no stones UA 3+ LE Blood cultures 08/28 negative x 4 days Repeat urine 08/31 and blood cultures 08/31 NEGATIVE Medications: Urine Culture (08/28/17): ESBL Imipenim/Cilastin 500mg Q6H IV for ESBL coverage (started 08/28/17) * Needs total of one week IV ABX Tylenol 650mg PO Q6H PRN fever Zofran 4mg IV Q6H PRN ESBL Positive Urine culture Imipenem for ESBL coverage Hematuria UA (08/27/17): 3+ LE, 510 WBC, 127 RBC, 2+ blood Etiology of hematuria: pyelo Lower GI bleed Positive Fecal Occult Stable H/H Monitor Elevated AST/ALT AST 76, ALT 84 Monitor Hypophosphotemia Resolved Prophylaxis SCDs GI not indicated VTE HOLD due to positive fecal occult Disposition: Needs total of one week IV ABX. Jerrod Romero PGY [address] Gaitan
--- NOTE | 2017-09-01 16:26 | CP.PCM.CON ---
History of Present Illness - History of Present Illness History of Present Illness: dictated Past Patient History - Infectious Disease Hx of Infectious Diseases: None - Past Medical History & Family History Past Medical History?: Yes - Past Social History Smoking Status: Never Smoked - CARDIAC Hx Cardiac Disorders: No - PULMONARY Hx Respiratory Disorders: No - NEUROLOGICAL Hx Neurological Disorder: No - HEENT Hx HEENT Problems: No - RENAL Hx Chronic Kidney Disease: No - ENDOCRINE/METABOLIC Hx Endocrine Disorders: No - HEMATOLOGICAL/ONCOLOGICAL Hx Blood Disorders: No - INTEGUMENTARY Hx Dermatological Problems: No - MUSCULOSKELETAL/RHEUMATOLOGICAL Hx Musculoskeletal Disorders: No Hx Falls: No - GASTROINTESTINAL Hx Gastrointestinal Disorders: No - GENITOURINARY/GYNECOLOGICAL Hx Genitourinary Disorders: No - PSYCHIATRIC Hx Psychophysiologic Disorder: No Hx Substance Use: No - SURGICAL HISTORY Hx Surgeries: Yes Hx Section: Yes (x3) - ANESTHESIA Hx Anesthesia: Yes Hx Anesthesia Reactions: No Meds Allergies/Adverse Reactions: Allergies Allergy/AdvReac Type Severity Reaction Status Date / Time No Known Allergies Allergy Verified 08/27/17 20:02 - Medications Medications: Current Medications Acetaminophen (Tylenol 325mg Tab) 650 mg PO Q6 PRN PRN Reason: Fever >100.4 F Last Admin: 08/30/17 14:18 Dose: 650 mg Imipenem/Cilastatin Sodium 500 (mg/ Sodium Chloride) 100 mls @ 100 mls/hr IVPB Q6H CHARLIE PRN Reason: Protocol Last Admin: 09/01/17 14:08 Dose: 100 mls/hr Ondansetron HCl (Zofran Inj) 4 mg IVP Q6H PRN PRN Reason: Nausea/Vomiting Last Admin: 08/28/17 14:20 Dose: 4 mg Results - Vital Signs Recent Vital Signs: Last Vital Signs Temp 98.2 F 09/01/17 16:16 Pulse 77 09/01/17 16:16 Resp 20 09/01/17 16:16 BP 137/92 H 09/01/17 16:16 Pulse Ox 98 09/01/17 16:16 - Labs Result Diagrams: 09/01/17 07:05 09/01/17 07:05 Labs: Laboratory Results - last 24 hr 09/01/17 09/01/17 07:05 07:05 WBC 5.5 RBC 4.62 Hgb 12.7 Hct 37.7 MCV 81.7 MCH 27.5 MCHC 33.7 RDW 12.5 Plt Count 272 MPV 8.9 Neut % (Auto) 52.3 Lymph % (Auto) 31.8 [place] % (Auto) 11.3 H Eos % (Auto) 4.2 H Baso % (Auto) 0.4 Neut # (Auto) 2.9 Lymph # (Auto) 1.7 [place] # (Auto) 0.6 Eos # (Auto) 0.2 Baso # (Auto) 0.0 Sodium 140 Potassium 4.1 Chloride 102 Carbon Dioxide 28 Anion Gap 14 BUN 11 Creatinine 0.7 Est GFR ( Amer) > 60 Est GFR (Non-Af Amer) > 60 Random Glucose 97 Calcium 9.1 Phosphorus 3.8 Magnesium 1.8 Total Bilirubin 0.4 AST 76 H D ALT 84 H D Alkaline Phosphatase 86 Total Protein 7.0 Albumin 3.8 Globulin 3.2 Albumin/Globulin Ratio 1.2
[2017-09-02 07:37] LABS: BASO % 0.5 % (0.0-2.0); EOS # 0.3 K/uL (0.0-0.7); EOS % 4.3 % (0.0-4.0); HEMOGLOBIN 13.2 g/dL (11.0-16.0); LYMPH # 1.8 K/uL (1.0-4.3); LYMPH % 30.2 % (20.0-40.0); MEAN CELL VOLUME 81.2 fL (81.0-99.0); MEAN CORPUSCULAR HEMOGLOBIN 27.7 pg (27.0-31.0); MEAN CORPUSCULAR HGB CONC 34.1 g/dL (33.0-37.0); MEAN PLATELET VOLUME 8.6 fL (7.2-11.7); MONO # 0.6 K/uL (0.0-0.8); MONO % 9.4 % (0.0-10.0); NEUT # 3.4 K/uL (1.8-7.0); NEUT % 55.6 % (50.0-75.0); NRBC % 0.1 % (0.0-2.0); RBC 4.75 Mil/uL (3.80-5.20); RED CELL DISTRIBUTION WIDTH 12.5 % (11.5-14.5)
[2017-09-02 07:50] LABS: ALB/GLOB RATIO 1.1 (1.0-2.1); ALBUMIN 3.7 g/dL (3.5-5.0); ALT/SGPT 90 U/L (9-52); AST/SGOT 63 U/L (14-36); BLOOD UREA NITROGEN 14 mg/dL (7-17); GFR AFRICAN-AMERICAN > 60; GFR NON-AFRICAN AMERICAN > 60
--- NOTE | 2017-09-02 09:22 | CON ---
DATE: 09/01/2017 INFECTIOUS DISEASE CONSULT REFERRED BY: Nicholas Norman MD HISTORY OF PRESENT ILLNESS: This patient is a 31-year-old female. She states 2 weeks ago, she had urine infection and she went and got some [id number] she has had that but she does not know what it contained, and she continued to have problems and came here with back pain, dysuria, and frequency on 08/27/2017. She started to have this pain on 08/25/2017, and she noted cloudy urine and increased frequency, and she came with pain without burning, with urination, and suprapubic pain. She is feeling little better now. She was started on Primaxin. I am asked to evaluate her because Primaxin is only given after approval of ID and pharmacy must have requested that. She denies any fever, chills, nausea, vomiting at this time, but she says she was very sick when she came in and had back pain, dysuria and frequency. The patient is feeling little better now. Denies any dysuria, denies back pain. PAST MEDICAL HISTORY: Significant for irregular periods. SOCIAL HISTORY: Negative for smoking or drinking or any drug abuse. PAST SURGERIES: No previous surgeries. FAMILY HISTORY: She has a family history of mother having hypertension and diabetes but she denies having diabetes herself. REVIEW OF SYSTEMS: She has no fever, no headaches now. No ear, nose, throat problems. No chest pain. No shortness of breath. No abdominal pain. No nausea, no vomiting. Denies urgency now and frequency and is feeling slightly better. ALLERGIES: SHE IS NOT ALLERGIC TO ANY MEDICINE. MEDICATIONS: She does not take any medicine regularly. Here, she is started on Tylenol, she is on imipenem, and she was on Zofran. PHYSICAL EXAMINATION: VITAL SIGNS: I find, her temperature is 98.2, pulse 77, blood pressure is 137/92. Her T-max is being afebrile. HEENT: Head is atraumatic, normocephalic. Pupils are reacting to light. NECK: Supple. JVP is flat. LUNGS: Clear. No crackles or rales present. HEART: S1, S2 is regular. No murmurs appreciated. ABDOMEN: Soft, nontender. No guarding, no rigidity present. BACK: No CVA tenderness present. She did say she was having lower back pain when she came on both sides. EXTREMITIES: Have no edema. LABORATORY DATA: Labs are noted. Labs show white count is 5.5, hemoglobin 12.7, hematocrit 37.7, platelet count is 272. Her chemistry shows sodium is 140, potassium 4.1, chloride of 102, CO2 is 28, BUN is 11, creatinine 0.7. AST is elevated to 76, ALT is 84, albumin is 3.3. Potassium is 4.18, it was low before. She also had blood cultures which are negative. Urine culture now is negative, she had on the , this is ESBL positive, and she is on Primaxin __multidrug___ resistant strain. She also had a CT abdomen and pelvis done which showed under distended urinary bladder, mild prominence of the bladder wall, and bilateral perinephric stranding and edema, right greater than left. No breast calculi or stones, limited evaluation of the renal parenchyma secondary to lack of intravenous contrast, pyelonephritis cannot be excluded. _IMP and plan : THIS patient has clinically uti with E coli esbl positive with pyelonephritis, I would give meropenem for next 10 days to cover for ESBL and to continue antibiotics, and we will discuss the plan with the resident, once she starts to improve clinically, but will need antibiotics for at least minimum of 10 days, and she needs to continue with contact precaution because she has ESBL in the urine and make sure she is not diabetic, and we will follow. Eden Abraham MD NETTE
--- NOTE | 2017-09-02 14:56 | CP.PCM.PN ---
Subjective - Date & Time of Evaluation Date of Evaluation: 09/02/17 Time of Evaluation: 02:25 - Subjective Subjective: dictated Objective - Vital Signs/Intake and Output Vital Signs (last 24 hours): Temp Pulse Resp BP Pulse Ox 98 F 75 20 122/86 98 09/02/17 08:00 09/02/17 08:00 09/02/17 08:00 09/02/17 08:00 09/02/17 08:00 Intake and Output: 09/02/17 09/02/17 06:59 18:59 Intake Total 600 Balance 600 - Medications Medications: Current Medications Acetaminophen (Tylenol 325mg Tab) 650 mg PO Q6 PRN PRN Reason: Fever >100.4 F Last Admin: 08/30/17 14:18 Dose: 650 mg Ondansetron HCl (Zofran Inj) 4 mg IVP Q6H PRN PRN Reason: Nausea/Vomiting Last Admin: 08/28/17 14:20 Dose: 4 mg - Labs Labs: 09/02/17 07:18 09/02/17 07:18
--- NOTE | 2017-09-02 17:29 | CP.PCM.PN ---
Subjective - Date & Time of Evaluation Date of Evaluation: 09/02/17 Time of Evaluation: 08:00 - Subjective Subjective: PGY-[address] Gaitan. No acute events noted overnight. Patient stated she had no symptoms. Denies dysuria, pelvic pain, flank pain, hematuria. She was agreeable to the plan of daily IV abx at an infusion center. Objective - Vital Signs/Intake and Output Vital Signs (last 24 hours): Temp Pulse Resp BP Pulse Ox 98.2 F 80 20 136/91 H 98 09/02/17 15:56 09/02/17 15:56 09/02/17 15:56 09/02/17 15:56 09/02/17 15:56 Intake and Output: 09/02/17 09/02/17 06:59 18:59 Intake Total 600 Balance 600 - Medications Medications: Current Medications Acetaminophen (Tylenol 325mg Tab) 650 mg PO Q6 PRN PRN Reason: Fever >100.4 F Last Admin: 09/02/17 15:35 Dose: 650 mg Ondansetron HCl (Zofran Inj) 4 mg IVP Q6H PRN PRN Reason: Nausea/Vomiting Last Admin: 08/28/17 14:20 Dose: 4 mg - Labs Labs: 09/02/17 07:18 09/02/17 07:18 - Additional Findings Additional findings: - Constitutional Appears: Well - Head Exam Head Exam: ATRAUMATIC, NORMAL INSPECTION, NORMOCEPHALIC - Eye Exam Eye Exam: EOMI, Normal appearance, PERRL Pupil Exam: NORMAL ACCOMODATION, PERRL - ENT Exam ENT Exam: Mucous Membranes Moist, Normal Exam - Neck Exam Neck Exam: Full ROM, Normal Inspection. absent: Lymphadenopathy - Respiratory Exam Respiratory Exam: Clear to Ausculation Bilateral, NORMAL BREATHING PATTERN - Cardiovascular Exam Cardiovascular Exam: REGULAR RHYTHM, +S1, +S2. absent: Murmur - GI/Abdominal Exam GI & Abdominal Exam: Soft, Normal Bowel Sounds - Rectal Exam Rectal Exam: NORMAL INSPECTION - Extremities Exam Extremities Exam: Full ROM, Normal Capillary Refill, Normal Inspection. absent : Joint Swelling, Pedal Edema - Back Exam Back Exam: NORMAL INSPECTION, No CVA tenderness elicited on palpation - Neurological Exam Neurological Exam: Alert, Awake, CN II-XII Intact, Normal Gait, Oriented x3 - Psychiatric Exam Psychiatric exam: Normal Affect, Normal Mood - Skin Skin Exam: Dry, Intact, Normal Color, Warm Assessment and Plan - Assessment and Plan (Free Text) Assessment: Acute pyelonephritis ID consult, Dr Abraham * Recommends 7 days of Invanz starting 09/03/17. We will attain PICC access on 09/03/17 by IR then discharge patient home and she will go to an infusion center to get daily Invanz for a total of 7 days. Labs/Diagnostics Afebrile; WBC normal UA 3+ LE Blood cultures 08/28 negative x 4 days Repeat urine 08/31 and blood cultures 08/31 NEGATIVE Imaging: CT abdomen pelvis w/o contrast (08/28/17) shows b/l perinephric stranding R>L w/ no stones Medications: Urine Culture (08/28/17): ESBL Imipenim/Cilastin 500mg Q6H IV for ESBL coverage (started 08/28/17, discontinued 09/02/17) Invanz 1g IV QD (started 09/02/17) Tylenol 650mg PO Q6H PRN fever Zofran 4mg IV Q6H PRN ESBL Positive Urine culture Imipenim/Cilastin 500mg Q6H IV for ESBL coverage (started 08/28/17, discontinued 09/02/17) Invanz 1g IV QD (started 09/02/17) Hematuria UA (08/27/17): 3+ LE, 510 WBC, 127 RBC, 2+ blood Etiology of hematuria: pyelo Lower GI bleed Positive Fecal Occult Stable H/H Monitor Will have her follow-up outpatient with GI Elevated AST/ALT AST 63, ALT 90 Monitor Hypophosphotemia Resolved Prophylaxis SCDs GI not indicated VTE HOLD due to positive fecal occult Disposition: We will attain PICC access on 09/03/17 by IR then discharge patient home and she will go to an infusion center to get daily Invanz for a total of 7 days. Jerrod Romero PGY [address] Gaitan
[2017-09-03 06:34] LABS: ALB/GLOB RATIO 1.1 (1.0-2.1); ALBUMIN 3.7 g/dL (3.5-5.0); ALT/SGPT 86 U/L (9-52); AST/SGOT 72 U/L (14-36); BLOOD UREA NITROGEN 15 mg/dL (7-17); CALCIUM 9.2 mg/dl (8.6-10.4); GFR AFRICAN-AMERICAN > 60; GFR NON-AFRICAN AMERICAN > 60
--- NOTE | 2017-09-03 06:35 | PN ---
DATE: 09/02/2017 SUBJECTIVE: The patient is afebrile. She feels better. Head is atraumatic, normocephalic. No back pain at this time. No nausea. No vomiting. PHYSICAL EXAMINATION: VITAL SIGNS: T-max is 98.2, pulse 80, blood pressure 136/91, respirations are 20. HEENT: Head is atraumatic, normocephalic. NECK: Supple. LUNGS: Clear. HEART: S1 and S2 are regular. ABDOMEN: Soft, nontender. No guarding, no rigidity present. EXTREMITIES: Have no edema. LABORATORY DATA: White count is 6, hemoglobin 13.2, hematocrit 38.6, platelet count is 325. Chemistry is noted. It is unremarkable except for the AST and ALT which are elevated at this time. Need to monitor that as the patient has been on Primaxin. ASSESSMENT AND PLAN: Now, the patient changed to Invanz. Will need followup labs and also to check the hepatitis profile. The resident was calling to get her there a PICC line and to see if we can get her home on Invanz. She is already started on Invanz 1 gm daily and need to check the labs if she is still here tomorrow and labs as outpatient as LFTs are increasing. Eden Abraham MD
[2017-09-03 06:45] LABS: BASO % 0.2 % (0.0-2.0); EOS # 0.2 K/uL (0.0-0.7); EOS % 3.5 % (0.0-4.0); HEMOGLOBIN 13.3 g/dL (11.0-16.0); LYMPH # 2.1 K/uL (1.0-4.3); LYMPH % 31.4 % (20.0-40.0); MEAN CELL VOLUME 81.6 fL (81.0-99.0); MEAN CORPUSCULAR HEMOGLOBIN 27.5 pg (27.0-31.0); MEAN CORPUSCULAR HGB CONC 33.8 g/dL (33.0-37.0); MEAN PLATELET VOLUME 8.6 fL (7.2-11.7); MONO # 0.6 K/uL (0.0-0.8); MONO % 9.6 % (0.0-10.0); NEUT # 3.7 K/uL (1.8-7.0); NEUT % 55.3 % (50.0-75.0); NRBC % 0.1 % (0.0-2.0); RBC 4.85 Mil/uL (3.80-5.20); RED CELL DISTRIBUTION WIDTH 12.4 % (11.5-14.5); WHITE BLOOD COUNT 6.7 K/uL (4.8-10.8)
[2017-09-03 08:03] VITALS: BP 124/81; PULSE 79; TEMP 97.8; O2SAT 98
--- NOTE | 2017-09-03 09:35 | RAD ---
HISTORY: verify right PICC COMPARISON: Comparison chest dated 07/09/2012 FINDINGS: In situ right-sided PICC line with tip in the SVC. LUNGS: No active pulmonary disease. PLEURA: No significant pleural effusion identified, no pneumothorax apparent. CARDIOVASCULAR: Normal. OSSEOUS STRUCTURES: No significant abnormalities. VISUALIZED UPPER ABDOMEN: Normal. OTHER FINDINGS: None. IMPRESSION: No active disease. In situ PICC line as above
--- NOTE | 2017-09-03 11:38 | CP.PCM.DIS ---
<Jerrod Romero R - Last Filed: 09/03/17 11:32> Provider - Provider Date of Admission: 08/27/17 22:09 Attending physician: Rosa Britton MD Primary care physician: PMD: Dr Smith Consults: ID: Dr Abraham Time Spent in preparation of Discharge (in minutes): 36 Diagnosis - Discharge Diagnosis (1) Acute pyelonephritis Status: Resolved Priority: High Hospital Course - Lab Results Lab Results: Micro Results 08/31/17 08:10 Blood-Venous Blood Culture - Preliminary NO GROWTH AFTER 3 DAYS 08/31/17 07:38 Blood-Venous Blood Culture - Preliminary NO GROWTH AFTER 3 DAYS 08/28/17 06:10 Blood Blood Culture - Final NO GROWTH AFTER 5 DAYS 08/28/17 06:10 Blood Gram Stain - Final TEST NOT PERFORMED 08/28/17 06:10 Blood Blood Culture - Final NO GROWTH AFTER 5 DAYS 08/28/17 06:10 Blood Gram Stain - Final TEST NOT PERFORMED 08/31/17 08:58 Urine,Clean Catch Urine Culture - Final No Growth (<1,000 CFU/ML) 08/28/17 00:05 Urine,Clean Catch Urine Culture - Final Escherichia Coli Most Recent Lab Values WBC 6.7 K/uL (4.8-10.8) 09/03/17 06:13 RBC 4.85 Mil/uL (3.80-5.20) 09/03/17 06:13 Hgb 13.3 g/dL (11.0-16.0) 09/03/17 06:13 Hct 39.5 % (34.0-47.0) 09/03/17 06:13 MCV 81.6 fL (81.0-99.0) 09/03/17 06:13 MCH 27.5 pg (27.0-31.0) 09/03/17 06:13 MCHC 33.8 g/dL (33.0-37.0) 09/03/17 06:13 RDW 12.4 % (11.5-14.5) 09/03/17 06:13 Plt Count 321 K/uL (130-400) 09/03/17 06:13 MPV 8.6 fL (7.2-11.7) 09/03/17 06:13 Neut % (Auto) 55.3 % (50.0-75.0) 09/03/17 06:13 Lymph % (Auto) 31.4 % (20.0-40.0) 09/03/17 06:13 Moore % (Auto) 9.6 % (0.0-10.0) 09/03/17 06:13 Eos % (Auto) 3.5 % (0.0-4.0) 09/03/17 06:13 Baso % (Auto) 0.2 % (0.0-2.0) 09/03/17 06:13 Neut # (Auto) 3.7 K/uL (1.8-7.0) 09/03/17 06:13 Lymph # (Auto) 2.1 K/uL (1.0-4.3) 09/03/17 06:13 Moore # (Auto) 0.6 K/uL (0.0-0.8) 09/03/17 06:13 Eos # (Auto) 0.2 K/uL (0.0-0.7) 09/03/17 06:13 Baso # (Auto) 0.0 K/uL (0.0-0.2) 09/03/17 06:13 Neutrophils % (Manual) 77 % (50-75) H 08/27/17 20:50 Band Neutrophils % 6 % (0-2) H 08/27/17 20:50 Lymphocytes % (Manual) 9 % (20-40) L 08/27/17 20:50 Monocytes % (Manual) 8 % (0-10) 08/27/17 20:50 Platelet Estimate Normal (NORMAL) 08/27/17 20:50 Retic Count 0.7 % (0.5-1.5) 08/29/17 10:46 pO2 14 mm/Hg (30-55) L 08/27/17 20:55 VBG pH 7.35 (7.32-7.43) 08/27/17 20:55 VBG pCO2 45 mmHg (40-60) 08/27/17 20:55 VBG HCO3 21.8 mmol/L 08/27/17 20:55 VBG Total CO2 26.2 mmol/L (22-28) 08/27/17 20:55 VBG O2 Sat (Calc) 19.8 % (40-65) L 08/27/17 20:55 VBG Base Excess -1.1 mmol/L (0.0-2.0) L 08/27/17 20:55 VBG Potassium 3.1 mmol/L (3.6-5.2) L 08/27/17 20:55 Sodium 140.0 mmol/l (132-148) 08/27/17 20:55 Chloride 109.0 mmol/L (98-107) H 08/27/17 20:55 Glucose 80 mg/dl (65-105) 08/27/17 20:55 Lactate 0.8 mmol/L (0.7-2.1) 08/27/17 20:55 FiO2 21.0 % 08/27/17 20:55 Sodium 140 mmol/L (132-148) 09/03/17 06:13 Potassium 4.6 mmol/L (3.6-5.2) 09/03/17 06:13 Chloride 102 mmol/L (98-107) 09/03/17 06:13 Carbon Dioxide 28 mmol/L (22-30) 09/03/17 06:13 Anion Gap 14 (10-20) 09/03/17 06:13 BUN 15 mg/dL (7-17) 09/03/17 06:13 Creatinine 0.8 mg/dL (0.7-1.2) 09/03/17 06:13 Est GFR ( Amer) > 60 09/03/17 06:13 Est GFR (Non-Af Amer) > 60 09/03/17 06:13 Random Glucose 103 mg/dL (65-105) 09/03/17 06:13 Calcium 9.2 mg/dl (8.6-10.4) 09/03/17 06:13 Phosphorus 4.1 mg/dL (2.5-4.5) 09/02/17 07:18 Magnesium 1.9 mg/dL (1.6-2.3) 09/02/17 07:18 Total Bilirubin 0.3 mg/dL (0.2-1.3) 09/03/17 06:13 AST 72 U/L (14-36) H 09/03/17 06:13 ALT 86 U/L (9-52) H 09/03/17 06:13 Alkaline Phosphatase 82 U/L (38-126) 09/03/17 06:13 Total Protein 7.1 g/dL (6.3-8.3) 09/03/17 06:13 Albumin 3.7 g/dL (3.5-5.0) 09/03/17 06:13 Globulin 3.4 gm/dL (2.2-3.9) 09/03/17 06:13 Albumin/Globulin Ratio 1.1 (1.0-2.1) 09/03/17 06:13 Lipase 36 U/L (23-300) 08/27/17 20:50 Venous Blood Potassium 3.1 mmol/L (3.6-5.2) L 08/27/17 20:55 Urine Color Yellow (YELLOW) 08/27/17 20:50 Urine Clarity Hazy (Clear) 08/27/17 20:50 Urine pH 7.0 (5.0-8.0) 08/27/17 20:50 Ur Specific [place] 1.016 (1.003-1.030) 08/27/17 20:50 Urine Protein 2+ mg/dL (NEGATIVE) H 08/27/17 20:50 Urine Glucose (UA) Normal mg/dL (Normal) 08/27/17 20:50 Urine Ketones Negative mg/dL (NEGATIVE) 08/27/17 20:50 Urine Blood 2+ (NEGATIVE) H 08/27/17 20:50 Urine Nitrate Negative (NEGATIVE) 08/27/17 20:50 Urine Bilirubin Negative (NEGATIVE) 08/27/17 20:50 Urine Urobilinogen Normal mg/dL (0.2-1.0) 08/27/17 20:50 Ur Leukocyte Esterase 3+ Jhonny/uL (Negative) H 08/27/17 20:50 Urine WBC (Auto) 510 /hpf (0-5) H 08/27/17 20:50 Urine RBC (Auto) 127 /hpf (0-3) H 08/27/17 20:50 Ur Squamous Epith Cells 1 /hpf (0-5) 08/27/17 20:50 Urine Bacteria Rare (<OCC) 08/27/17 20:50 Urine HCG, Qual Negative (NEGATIVE) 08/27/17 20:50 Stool Occult Blood Positive (NEGATIVE) H 08/29/17 08:56 Stool Leukocytes, Qual Negative (NEGATIVE) 08/29/17 08:56 - Hospital Course Hospital Course: CC: back pain and dysuria HPI: 31F patient states that the right sided flank/back pain started on Friday 08/25 and she noted cloudy urine and increased frequency Patient states for the past two days she's been having pain without burning with urination and suprapubic pain. Patient admits to RLQ and Right mid quadrant pain associated with nausea. Pain is noted as stabbing with pressure worse with walking, worse with food. Patient states she took tylenol which helped. Patient admits to fever, chills, nausea, abdominal pain, dysuria. Patient states she wipes from front to back and urinates immediately after sexual intercourse. PMH:LMP 1 month, irregular periords Social History: no illicit drugs, never smoker Family history: mother has HTN, DM PMD: Dr. Smith HOSPITAL COURSE: Mrs Quiñones was diagnosed with acute pyelonephritis. A urine culture grew out ESBL + e.coli. A CT abd/pelvis confirmed pyelonephritis. She was started on Imipenim/ cilastin. Her symptoms improved quickly. Repeat urine culture was negative. ID, Dr Abraham was consulted for advice for discharge medication and she advised that patient receive a PICC line and go to infusion center to receive [address] days of [address]Z daily. Dr Abraham's advice was followed. Additionally, the patient had a positive fecal occult however her H/H remained stable throughout. We have advised her to follow-up with an outpatient GI doctor, a referral was provided. By discharge she had a normal white count, afebrile and was clinically pain free for a few days. I've pasted the latest progress note below for specifics on her management course: Acute pyelonephritis ID consult, Dr Abraham * Recommends 7 days of Invanz starting 09/03/17. We will attain PICC access on 09/03/17 by IR then discharge patient home and she will go to an infusion center to get daily Invanz for a total of 7 days. Labs/Diagnostics Afebrile; WBC normal UA 3+ LE Blood cultures 08/28 negative x 4 days Repeat urine 08/31 and blood cultures 08/31 NEGATIVE Imaging: CT abdomen pelvis w/o contrast (08/28/17) shows b/l perinephric stranding R>L w/ no stones Medications: Urine Culture (08/28/17): ESBL Imipenim/Cilastin 500mg Q6H IV for ESBL coverage (started 08/28/17, discontinued 09/02/17) Invanz 1g IV QD (started 09/02/17) Tylenol 650mg PO Q6H PRN fever Zofran 4mg IV Q6H PRN ESBL Positive Urine culture Imipenim/Cilastin 500mg Q6H IV for ESBL coverage (started 08/28/17, discontinued 09/02/17) Invanz 1g IV QD (started 09/02/17) Hematuria UA (08/27/17): 3+ LE, 510 WBC, 127 RBC, 2+ blood Etiology of hematuria: pyelo Lower GI bleed Positive Fecal Occult Stable H/H Monitor Will have her follow-up outpatient with GI Elevated AST/ALT AST 63, ALT 90 Monitor Hypophosphotemia Resolved Prophylaxis SCDs GI not indicated VTE HOLD due to positive fecal occult Disposition: We will attain PICC access on 09/03/17 by IR then discharge patient home and she will go to an infusion center to get daily Invanz for a total of 7 days. Discharge Exam - Head Exam Head Exam: ATRAUMATIC, NORMAL INSPECTION, NORMOCEPHALIC - Additional Findings Additional findings: - Constitutional Appears: Well - Head Exam Head Exam: ATRAUMATIC, NORMAL INSPECTION, NORMOCEPHALIC - Eye Exam Eye Exam: EOMI, Normal appearance, PERRL Pupil Exam: NORMAL ACCOMODATION, PERRL - ENT Exam ENT Exam: Mucous Membranes Moist, Normal Exam - Neck Exam Neck Exam: Full ROM, Normal Inspection. absent: Lymphadenopathy - Respiratory Exam Respiratory Exam: Clear to Ausculation Bilateral, NORMAL BREATHING PATTERN - Cardiovascular Exam Cardiovascular Exam: REGULAR RHYTHM, +S1, +S2. absent: Murmur - GI/Abdominal Exam GI & Abdominal Exam: Soft, Normal Bowel Sounds - Rectal Exam Rectal Exam: NORMAL INSPECTION - Extremities Exam Extremities Exam: Full ROM, Normal Capillary Refill, Normal Inspection. absent : Joint Swelling, Pedal Edema - Back Exam Back Exam: NORMAL INSPECTION, No CVA tenderness elicited on palpation - Neurological Exam Neurological Exam: Alert, Awake, CN II-XII Intact, Normal Gait, Oriented x3 - Psychiatric Exam Psychiatric exam: Normal Affect, Normal Mood - Skin Skin Exam: Dry, Intact, Normal Color, Warm Discharge Plan - Follow Up Plan Condition: FAIR Disposition: HOME/ ROUTINE Instructions: Peripherally-Inserted Central Catheter, Ertapenem, Acute Pyelonephritis (DC) Additional Instructions: Patient is medically stable for discharge. Patient has a PICC line for the purpose of receiving 7 days of INVANZ antibiotic to treat her infection. The first of seven days will start tomorrow. She will go to an infusion center to receive her antibiotic infusion through the PICC. After the completion of antibiotic, the PICC line will be removed. After the treatment course, within 7 days please see your PMD and follow-up to insure that your infection is resolving adequately. Additionally, please go follow-up with a gastrenterology doctor as a test confirmed the presence of microscopic bleeding in your stool A referral has been provided to a GI doctor, Dr Shepherd. If presenting symptoms return please go to your nearest emergency department. Referrals: Aayush Shepherd MD [Medical Doctor] - Eden Abraham MD [Staff Provider] - <Rosa Britton - Last Filed: 09/03/17 18:42> Provider - Provider Date of Admission: 08/27/17 22:09 Attending physician: Rosa Britton MD Hospital Course - Lab Results Lab Results: Micro Results 08/31/17 08:10 Blood-Venous Blood Culture - Preliminary NO GROWTH AFTER 3 DAYS 08/31/17 07:38 Blood-Venous Blood Culture - Preliminary NO GROWTH AFTER 3 DAYS 08/28/17 06:10 Blood Blood Culture - Final NO GROWTH AFTER 5 DAYS 08/28/17 06:10 Blood Gram Stain - Final TEST NOT PERFORMED 08/28/17 06:10 Blood Blood Culture - Final NO GROWTH AFTER 5 DAYS 08/28/17 06:10 Blood Gram Stain - Final TEST NOT PERFORMED 08/31/17 08:58 Urine,Clean Catch Urine Culture - Final No Growth (<1,000 CFU/ML) 08/28/17 00:05 Urine,Clean Catch Urine Culture - Final Escherichia Coli Most Recent Lab Values WBC 6.7 K/uL (4.8-10.8) 09/03/17 06:13 RBC 4.85 Mil/uL (3.80-5.20) 09/03/17 06:13 Hgb 13.3 g/dL (11.0-16.0) 09/03/17 06:13 Hct 39.5 % (34.0-47.0) 09/03/17 06:13 MCV 81.6 fL (81.0-99.0) 09/03/17 06:13 MCH 27.5 pg (27.0-31.0) 09/03/17 06:13 MCHC 33.8 g/dL (33.0-37.0) 09/03/17 06:13 RDW 12.4 % (11.5-14.5) 09/03/17 06:13 Plt Count 321 K/uL (130-400) 09/03/17 06:13 MPV 8.6 fL (7.2-11.7) 09/03/17 06:13 Neut % (Auto) 55.3 % (50.0-75.0) 09/03/17 06:13 Lymph % (Auto) 31.4 % (20.0-40.0) 09/03/17 06:13 Moore % (Auto) 9.6 % (0.0-10.0) 09/03/17 06:13 Eos % (Auto) 3.5 % (0.0-4.0) 09/03/17 06:13 Baso % (Auto) 0.2 % (0.0-2.0) 09/03/17 06:13 Neut # (Auto) 3.7 K/uL (1.8-7.0) 09/03/17 06:13 Lymph # (Auto) 2.1 K/uL (1.0-4.3) 09/03/17 06:13 Moore # (Auto) 0.6 K/uL (0.0-0.8) 09/03/17 06:13 Eos # (Auto) 0.2 K/uL (0.0-0.7) 09/03/17 06:13 Baso # (Auto) 0.0 K/uL (0.0-0.2) 09/03/17 06:13 Neutrophils % (Manual) 77 % (50-75) H 08/27/17 20:50 Band Neutrophils % 6 % (0-2) H 08/27/17 20:50 Lymphocytes % (Manual) 9 % (20-40) L 08/27/17 20:50 Monocytes % (Manual) 8 % (0-10) 08/27/17 20:50 Platelet Estimate Normal (NORMAL) 08/27/17 20:50 Retic Count 0.7 % (0.5-1.5) 08/29/17 10:46 pO2 14 mm/Hg (30-55) L 08/27/17 20:55 VBG pH 7.35 (7.32-7.43) 08/27/17 20:55 VBG pCO2 45 mmHg (40-60) 08/27/17 20:55 VBG HCO3 21.8 mmol/L 08/27/17 20:55 VBG Total CO2 26.2 mmol/L (22-28) 08/27/17 20:55 VBG O2 Sat (Calc) 19.8 % (40-65) L 08/27/17 20:55 VBG Base Excess -1.1 mmol/L (0.0-2.0) L 08/27/17 20:55 VBG Potassium 3.1 mmol/L (3.6-5.2) L 08/27/17 20:55 Sodium 140.0 mmol/l (132-148) 08/27/17 20:55 Chloride 109.0 mmol/L (98-107) H 08/27/17 20:55 Glucose 80 mg/dl (65-105) 08/27/17 20:55 Lactate 0.8 mmol/L (0.7-2.1) 08/27/17 20:55 FiO2 21.0 % 08/27/17 20:55 Sodium 140 mmol/L (132-148) 09/03/17 06:13 Potassium 4.6 mmol/L (3.6-5.2) 09/03/17 06:13 Chloride 102 mmol/L (98-107) 09/03/17 06:13 Carbon Dioxide 28 mmol/L (22-30) 09/03/17 06:13 Anion Gap 14 (10-20) 09/03/17 06:13 BUN 15 mg/dL (7-17) 09/03/17 06:13 Creatinine 0.8 mg/dL (0.7-1.2) 09/03/17 06:13 Est GFR ( Amer) > 60 09/03/17 06:13 Est GFR (Non-Af Amer) > 60 09/03/17 06:13 Random Glucose 103 mg/dL (65-105) 09/03/17 06:13 Calcium 9.2 mg/dl (8.6-10.4) 09/03/17 06:13 Phosphorus 4.1 mg/dL (2.5-4.5) 09/02/17 07:18 Magnesium 1.9 mg/dL (1.6-2.3) 09/02/17 07:18 Total Bilirubin 0.3 mg/dL (0.2-1.3) 09/03/17 06:13 AST 72 U/L (14-36) H 09/03/17 06:13 ALT 86 U/L (9-52) H 09/03/17 06:13 Alkaline Phosphatase 82 U/L (38-126) 09/03/17 06:13 Total Protein 7.1 g/dL (6.3-8.3) 09/03/17 06:13 Albumin 3.7 g/dL (3.5-5.0) 09/03/17 06:13 Globulin 3.4 gm/dL (2.2-3.9) 09/03/17 06:13 Albumin/Globulin Ratio 1.1 (1.0-2.1) 09/03/17 06:13 Lipase 36 U/L (23-300) 08/27/17 20:50 Venous Blood Potassium 3.1 mmol/L (3.6-5.2) L 08/27/17 20:55 Urine Color Yellow (YELLOW) 08/27/17 20:50 Urine Clarity Hazy (Clear) 08/27/17 20:50 Urine pH 7.0 (5.0-8.0) 08/27/17 20:50 Ur Specific [place] 1.016 (1.003-1.030) 08/27/17 20:50 Urine Protein 2+ mg/dL (NEGATIVE) H 08/27/17 20:50 Urine Glucose (UA) Normal mg/dL (Normal) 08/27/17 20:50 Urine Ketones Negative mg/dL (NEGATIVE) 08/27/17 20:50 Urine Blood 2+ (NEGATIVE) H 08/27/17 20:50 Urine Nitrate Negative (NEGATIVE) 08/27/17 20:50 Urine Bilirubin Negative (NEGATIVE) 08/27/17 20:50 Urine Urobilinogen Normal mg/dL (0.2-1.0) 08/27/17 20:50 Ur Leukocyte Esterase 3+ Jhonny/uL (Negative) H 08/27/17 20:50 Urine WBC (Auto) 510 /hpf (0-5) H 08/27/17 20:50 Urine RBC (Auto) 127 /hpf (0-3) H 08/27/17 20:50 Ur Squamous Epith Cells 1 /hpf (0-5) 08/27/17 20:50 Urine Bacteria Rare (<OCC) 08/27/17 20:50 Urine HCG, Qual Negative (NEGATIVE) 08/27/17 20:50 Stool Occult Blood Positive (NEGATIVE) H 08/29/17 08:56 Stool Leukocytes, Qual Negative (NEGATIVE) 08/29/17 08:56 Attending/Attestation - Attestation I have personally seen and examined this patient.: Yes I have fully participated in the care of the patient.: Yes I have reviewed all pertinent clinical information, including history, physical exam and plan: Yes Notes (Text): plan discussed with patient recommend to continue IV antibiotics as recommended and aske to remove her picc line after completed her 7 days of antibiotics
== END 2017-09-03 15:23 | disposition home or self-care (01) | DRG 321 ==
LOC: C.ER 19:28 → C.9E 22:09 → C.3T 23:00 → C.5S 09-02 18:01
PROVIDERS: ADMIT Internal Medicine; ATTEND Internal Medicine
PROC: 02HV33Z Insertion of Infusion Device into Superior Vena Cava, Percutaneous Approach (ICD-10-PCS; principal; 2017-09-03)
DX: N10 Acute pyelonephritis (principal); B96.20 Unspecified Escherichia coli [E. coli] as the cause of diseases classified elsewhere

== ENCOUNTER 2018-01-17 19:45 | Emergency (ER) | payer OTHER ==
[2018-01-17 19:45] VITALS: BMI 26.6
[2018-01-17 19:54] VITALS: TEMP 98.5; O2SAT 100
--- NOTE | 2018-01-17 20:04 | C.PDOC ---
History Of Present Illness 32 y/o female comes in with complaints of intermittent lower abdominal pain for the past month. Patient states pain got worse last night and woke up from her sleep, describing the pain as sharp cramping. Otherwise she denies any fever, chills, nausea, or vomiting. States she had a couple of loose bowel movements today. Time Seen by Provider: 01/17/18 20:03 Chief Complaint (Nursing): Abdominal Pain History Per: Patient History/Exam Limitations: no limitations Onset/Duration Of Symptoms: Days Current Symptoms Are (Timing): Still Present Severity: Mild Pain Scale Rating Of: 4 Radiation Of Pain To:: None Quality Of Discomfort: Sharp, Cramping Associated Symptoms: denies: Fever, Chills, Nausea, Vomiting Exacerbating Factors: None Alleviating Factors: None Last Bowel Movement: Today Recent travel outside of the [place] States: No Abnormal Vaginal Bleeding: No Past Medical History Reviewed: Historical Data, Nursing Documentation, Vital Signs Vital Signs: Last Vital Signs Temp 98.5 F 01/17/18 19:51 Pulse 84 01/17/18 19:51 Resp 20 01/17/18 19:51 BP 155/102 H 01/17/18 19:51 Pulse Ox 100 01/17/18 19:51 - Medical History PMH: Denies: Chronic Kidney Disease - [facility] Procedures INSERTION OF INFUSION DEV INTO SUP VENA CAVA, PERC APPROACH (08/27/17) Family History: States: No Known Family Hx - Social History Hx Tobacco Use: No Hx Alcohol Use: No Hx Substance Use: No - Immunization History Hx Tetanus Toxoid Vaccination: No Hx Influenza Vaccination: No Hx Pneumococcal Vaccination: No Review Of Systems Constitutional: Negative for: Fever, Chills Cardiovascular: Negative for: Chest Pain Respiratory: Negative for: Shortness of Breath Gastrointestinal: Positive for: Abdominal Pain (lower). Negative for: Nausea, Vomiting Neurological: Negative for: Weakness, Numbness Physical Exam - Physical Exam Appears: Non-toxic, No Acute Distress Skin: Warm, Dry Head: Normacephalic Eye(s): bilateral: Normal Inspection Oral Mucosa: Moist Neck: Supple Chest: Symmetrical Cardiovascular: Rhythm Regular, No Murmur Respiratory: Normal Breath Sounds, No Rales, No Rhonchi, No Wheezing Gastrointestinal/Abdominal: Soft, Tenderness (to lower abdomen), No Guarding, No Rebound Neurological/Psych: Oriented x3, Normal Speech ED Course And Treatment - Laboratory Results Result Diagrams: 01/17/18 20:10 01/17/18 20:10 O2 Sat by Pulse Oximetry: 100 (RA) Pulse Ox Interpretation: Normal - CT Scan/US CT Abd/Pel Other Rad Studies (CT/US): Read By Radiologist, Radiology Report Reviewed CT/US Interpretation: FINDINGS: LUNG BASES: The lung bases appear clear. No pleural effusions are seen. LIVER: Unremarkable. GALLBLADDER AND BILE DUCTS: No gallstones are pericholecystic fluid. PANCREAS: Unremarkable. SPLEEN: Unremarkable. ADRENAL GLANDS: Unremarkable. KIDNEYS, URETERS, AND BLADDER: The kidneys appear within normal limits. There is no hydronephrosis or hydroureter. No urinary calculi are seen. STOMACH AND BOWEL: No evidence of acute diverticulitis. APPENDIX: Appendix visualized, noninflammatory. PERITONEUM: Free fluid in the cul-de-sac. LYMPH NODES: No lymphadenopathy is evident. VASCULATURE: No evidence of abdominal aortic aneurysm. BONES: No aggressive appearing osseous lesion. No acute osseous pathology evident. MISCELLANEOUS: Right adnexa appears as a recently ruptured cyst. IMPRESSION: 1. Free fluid in the cul-de-sac. 2. Right adnexa appears recently ruptured cyst. 3. Appendix visualized, noninflammatory. 4. No gallstones or pericholecy stic fluid. 5. No evidence of acute diverticulitis Progress Note: Labs, CT Abd/Pel, and urinalysis ordered. Pepcid and IV fluids administered. Reevaluation Time: 23:13 Reassessment Condition: Improved Disposition Counseled Patient/Family Regarding: Studies Performed, Diagnosis, Need For Followup - Disposition Disposition: HOME/ ROUTINE Disposition Time: 20:04 Condition: FAIR Additional Instructions: Please return if symptoms recur and follow up with your tour escort Instructions: Ovarian Cyst (DC) Forms: [email or web address] ([place]ish) - Clinical Impression Clinical Impression: Ruptured ovarian cyst - Scribe Statement The provider has reviewed the documentation as recorded by the Ricardo Cabrera Provider Attestation: All medical record entries made by the Ricardo were at my direction and personally dictated by me. I have reviewed the chart and agree that the record accurately reflects my personal performance of the history, physical exam, medical decision making, and the department course for this patient. I have also personally directed, reviewed, and agree with the discharge instructions and disposition.
[2018-01-17] MEDS ORDERED: Sodium Chloride 0.9% 1,000 ML IV ONE (20:07)
[2018-01-17 20:14] LABS: BASO % 0.3 % (0.0-2.0); EOS % 0.6 % (0.0-4.0); HEMOGLOBIN 12.8 g/dL (11.0-16.0); LYMPH # 2.7 K/uL (1.0-4.3); LYMPH % 35.2 % (20.0-40.0); MEAN CELL VOLUME 80.8 fL (81.0-99.0); MEAN CORPUSCULAR HEMOGLOBIN 27.4 pg (27.0-31.0); MEAN CORPUSCULAR HGB CONC 33.9 g/dL (33.0-37.0); MEAN PLATELET VOLUME 8.5 fL (7.2-11.7); MONO # 0.9 K/uL (0.0-0.8); MONO % 11.5 % (0.0-10.0); NEUT % 52.4 % (50.0-75.0); NRBC % 0.1 % (0.0-2.0); RBC 4.67 Mil/uL (3.80-5.20); RED CELL DISTRIBUTION WIDTH 14.1 % (11.5-14.5); WHITE BLOOD COUNT 7.6 K/uL (4.8-10.8)
[2018-01-17 20:16] LABS: HCG,QUALITATIVE URINE NEGATIVE (NEGATIVE)
[2018-01-17 20:21] LABS: INR 1.1; SQUAMOUS EPITHIAL 5 /hpf (0-5); URINE BILIRUBIN NEGATIVE (NEGATIVE); URINE BLOOD NEGATIVE (NEGATIVE); URINE CLARITY Clear (Clear); URINE COLOR Yellow (YELLOW); URINE GLUCOSE (UA) NORMAL (Normal); URINE LEUKOCYTE ESTERASE NEG Leu/uL (Negative); URINE PROTEIN NEGATIVE (NEGATIVE)
[2018-01-17 20:26] LABS: ALB/GLOB RATIO 1.2 (1.0-2.1); ALT/SGPT 33 U/L (9-52); AST/SGOT 25 U/L (14-36); BLOOD UREA NITROGEN 17 mg/dL (7-17); CALCIUM 9.2 mg/dl (8.6-10.4); GFR NON-AFRICAN AMERICAN > 60; LIPASE 65 U/L (23-300)
[2018-01-17] MEDS ORDERED: Iodixanol 320 MG/ML 100 ML BOTTLE IV ONE (21:20)
[2018-01-17 23:31] VITALS: BP 121/82; PULSE 82; RESP 16
--- NOTE | 2018-01-18 14:37 | CT ---
Date of service: 01/17/2018 PROCEDURE: CT Abdomen and Pelvis with contrast HISTORY: lower abd pain COMPARISON: Abdomen pelvis CT without contrast 08/27/2017. TECHNIQUE: Following the intravenous administration of iodinated contrast material, a CT examination of the abdomen and pelvis performed from the domes of the diaphragms to the symphysis pubis with reformatted datasets provided in axial, sagittal and coronal planes. Oral contrast was not administered as per referring physician request. Coronal and sagittal reformats were generated. Contrast dose: Visipaque 320, 100 cc Radiation dose: Total exam DLP = 955.0 mGy-cm. This CT exam was performed using one or more of the following dose reduction techniques: Automated exposure control, adjustment of the mA and/or kV according to patient size, and/or use of iterative reconstruction technique. FINDINGS: LOWER THORAX: Small hiatal hernia identified once again. LIVER: There is a small solitary lucency seen in each of the left and right lobes of the liver with both well under 1 cm size, too small to characterize. Hepatic parenchyma is otherwise unremarkable. GALLBLADDER AND BILE DUCTS: Unremarkable. PANCREAS: Unremarkable. No gross lesion or ductal dilatation. SPLEEN: Unremarkable. ADRENALS: Unremarkable. No mass. KIDNEYS AND URETERS: Unremarkable. No hydronephrosis. No solid mass. VASCULATURE: Unremarkable. No aortic aneurysm. No aortic atherosclerotic calcification or mural plaque present. BOWEL: Unremarkable. No obstruction. No gross mural thickening. APPENDIX: Normal appendix. PERITONEUM: Unremarkable. No free fluid. No free air. LYMPH NODES: Unremarkable. No enlarged lymph nodes. BLADDER: Unremarkable. REPRODUCTIVE: Partially collapsed cyst right adnexa compartment, likely the cause of limited fluid in the pelvis. Limited left venous pelvic congestion evident. BONES: No acute fracture. OTHER FINDINGS: None. IMPRESSION: 1. Partial right adnexal cyst rupture with fluid in the pelvis likely secondary. 2. Mild left pelvic venous congestion evident. 3. Lesser findings as discussed above. Preliminary report provided by [facility], 01/17/2018.
== END 2018-01-17 23:29 | disposition home or self-care (01) ==
LOC: C.ER 19:45
DX: N83.201 Unspecified ovarian cyst, right side (principal)
CPT/HCPCS: 74177; 80053; 81001; 83690; 84703; 85025; 85610; 85730; 96361; 96374; 99284; J7030; Q9967